=== PATIENT | male | born 1945 | race Caucasian/White ===

== ENCOUNTER 2024-08-12 13:13 | Outpatient (CLI) | payer OTHER, SELFPAY ==
--- OUTSIDE RECORDS SUMMARY | 2024-06-28 10:00 | XMS_ITS ---
CT MEDICAL NUTRITION INDIV IN [facility] Encounter Summary Created on: August 12, 2024 DIANNE COLES : 1945 Sex: Male Author Name [facility] [place] [facility] [place] [facility] [place] Address [address] [place] [address] Care Team Providers Care Wreath Machine Operator Name Role Phone MARIO BROWN Primary Care Provider UnavailROBERT Pepe Primary Care Provider Unavailabl e Insurance Providers: All historical and current Section Date Range: From patient's date of to the date document was created. This section includes the names of all active insurance providers for the patient. Insurance Provider Type of Coverage Plan Name Start of Policy Coverage End of Policy Coverage Group Number Member ID Insurance Provider's Telephone Number Policy Natarajan's Name Patient's Relationship to Policy Natarajan [facility]) [facility]IC[facility] ([facility]) Feb 14, 2024 [id number] ENRIKE COLES PATIENT [employer] [facility] (WNR) MEDICARE ADVANTAGE [facility] ([facility]) Feb 13, 2015 [id number] ENRIKE COLES PATIENT Selected Encounter This section includes the information on record at CT for the Encounter. Date/Time Encounter Type Encounter Description Reason Provider Source June 28, 2024 02:00 PM MEDICAL NUTRITION INDIV IN TELEPHONE/JOSEILLA GISELA ICD-10-CM R63.6 SWETA Bassett [place] Encounter Template Text not used by CT Assessments - Encounter Diagnoses This section includes the primary and secondary diagnoses documented for the Encounter. Date/Time Primary/Secondary Diagnosis Diagnosis Name Provider Source June 28, 2024 02:00 PM PRIMARY Underweight KRISTINAMAHENDRAA [facility] Plan of Treatment: Future Appointments (+ 6 months) and Future Tests (+/- 45 days) The Plan of Treatment section includes future care activities for the patient from all CT treatmentfacilities. This section includes future appointments and future orders which are active, pending or scheduled. Future Appointments This section includes appointments that were scheduled to occur 6 months from the date of the Encounter, up to a maximum of 20 appointments. The data comes from all CT treatment facilities. Appointment Date/Time Appointment Type Appointme nt Facility Name July 03, 2024 01:00 PM AMBULATORY - MED[facility]INE [facility] Sep 20, 2024 11:00 AM AMBULATORY - NONE [facility] Oct 30, 2024 02:30 PM AMBULATORY - MEDICINE [facility] Nov 22, 2024 01:30 PM AMBULATORY - NONE [place] Social History: Smoking Status (Most current) and Tobacco Use (All prior to encounter date) This section includes the most current, and the historical, smoking and tobacco- related health factors from the CT facility where the Encounter took place. Current Smoking Status This section includes the most current smoking, or tobacco-related health factor, from the CT facility where the Encounter took place. Date/Time Current Smoking Status Comment Natividad braga Apr 26, 2024 01:30 PM VA-TOBACCO USE FORMER CIGARETTES [facility] Tobacco Use History This section includes a history of the smoking, or tobacco-related health factors, that were collected on or before the date of the Encounter. The data comes from the CT facility where the Encounter took place. Date/Time Smoking Status/Tobacco Use Comment F acodalys Apr 26, 2024 01:30 PM VA-TOBACCO USE FORMER CIGARETTES [facility] Feb 24, 2023 02:30 PM VA-TOBACCO FORMER USER [facility] Feb 24, 2023 02:30 PM VA-TOBACCO QUIT 15 YRS OR MORE [facility] Dec 22, 2021 01:30 PM VA-TOBACCO FORMER USER [facility] Dec 22, 2021 01:30 PM VA-TOBACCO QUIT 15 YRS OR MORE [facility] May 26, 2021 09:00 AM VA-TOBACCO FORMER USER [facility] May 26, 2021 09:00 AM VA-TOBACCO QUIT 15 YRS OR MORE [facility] Oct 22, 2020 10:30 AM VA-TOBACCO FORMER USER [facility] Oct 22, 2020 10:30 AM VA-TOBACCO QUIT 15 YRS OR MORE [facility] May 20, 2020 01:30 PM VA-TOBACCO FORMER USER [facility] May 20, 2020 01:30 PM VA-TOBACCO QUIT 15 YRS OR MORE [facility] Advance Directives: All historical and current Section Date Range: From patient's date of to the date document was created. This section includes ALL of a patient's completed or amended CT Advance and Rescinded Directives. The entries below indicate that a directive exists for the patient, but an actual copy is not included with this document. The data comes from all CT facilities. Date Advance Directives Provider Source Nov 21, 2019 ADVANCE DIRECTIVE DISCUSSION HUMAN,AYANNA MAK [facility] Encounter Notes: All associated encounter notes This section contains the clinical notes associated to the Encounter. Date/Time Encounter Note(s) Provider Source June 28, 2024 02:00 PM NUTRITION TELEPHON E ENCOUNTER NOTE: LOCAL TITLE: NUTRITION TELEPHONE NOTE STANDARD TITLE: NUTRITION TELEPHONE ENCOUNTER NOTE DATE OF NOTE: JUNE 28, 2024@14:00 ENTRY DATE: JUNE 28, 2024@14:00:56 AUTHOR: SWETA ACEVEDO COSIGNER: URGENCY: STATUS: COMPLETED FOLLOW-UP F2F/VVC/PHONE VISIT FOR PATIENT NUTRITION PRIORITY: NUTRITION ASSESSMENT Assessment of patient selected goal(s) set at previous visit: 1. Ensure in between meals bid. Goal not met. 2. Add high calorie foods to diet. Goal met. Assessment of clinical outcomes set at previous visit: Patient reports when he drinks Ensure it bloats him and curbs his appetite and he doesn't want to eat. Up at 7:15 eats orange, oats, sits in chair then catches up on his sleep. Gets up around 11:30 but he isn't hungry. 2-3 PM eats, drinks an Ensure 4-4:30 then he is too bloated to eat a meal and only eats a bite or 2 to take his medication. RDN discussed Ensure Clear with patient and he is interested in trying the apple flavor. RDN told him he can donate or give away the Ensure he has on hand. His weight is trending up and he has gained 10 lbs. over the past 7 months but BMI: 20 is low for age. FOOD/NUTRITION-RELATED HX Breakfast: Steel Cut Oatmeal w/milk, cinnamon, honey, walnuts, flaxseed powder, orange or [place] muffin w/honey, peanut butter w/oatmeal. Lunch: Egg omelet w/onions, spinach, cheese, slice of bread. Dinner: Grilled [place], sweet potato w/butter, cinnamon, honey or Restaurant called [employer]: Dietz Salad or white mesa soup w/mendoza or chicken sandwich Snacks: Beverages: Water Weight: 136.69 lb. [62.00 kg] (04/26/2024 14:13) BMI: 20.2 WEIGHT HX: 04/26/24 @ 1413 WEIGHT: 136 Lbs. 01/24/24 @ 1450 WEIGHT: 134 12/28/23 @ 1233 WEIGHT: 132 11/24/23 @ 1104 WEIGHT: 126 BIOCHEMICAL DATA: Reviewed NUTRITION FOCUSED PHYSICAL FINDINGS: N/A tele visits NUTRITION PRESCRIPTION Golden Diet Calories: 1800 30 kcal/kg actual wt. Protein: 60-72 grams 1.0-1.2 g/kg actual wt. ASSESSMENT, MONITORING, AND EVALUATION TOOLS: NUTRITION DIAGNOSIS: Nutritional related knowledge deficit, related to lack of prior nutrition education (knowledge etiology), as evidenced by patient over restricting foods, unintended weight loss. IMPROVING NUTRITION INTERVENTION FOOD AND/OR NUTRITION DELIVERY -Meals and Snacks: 3 meals/day, snacks if needed. -Nutrition Supplement Therapy: Ensure Clear supplements bid to help meet daily needs. Each supplement will provide 240 kcal and 8 g protein. NUTRITION COUNSELING Theoretical Basis/Approach: transtheoretical model stages of change approach Strategies: motivational interviewing, goal setting, self-monitoring Identify Nutrition Intervention Goal(s) Patient selected action plan/goal(s): 1. Ensure Clear in between meals bid. 2. Add high calorie foods to diet. NUTRITION MONITORING AND EVALUATION Clinical Indicators to Monitor: 1. Weight > 136 Lbs. FOLLOW-UP: 3-4 Months /maryellen/ SWETA ACEVEDO RDN Signed: 06/28/2024 14:31 SWETA ACEVEDO [facility]
--- OUTSIDE RECORDS SUMMARY | 2024-07-03 09:00 | XMS_ITS | Encounter Summary ---
Author Name [facility] [place] [place] Organization [facility] [place] Address [address] [place] [address] Care Team Providers Care Certified Driver Examiner Name Role Phone MARIO BROWN Primary Care Provider Unavailabl e ROBERT BHATT Primary Care Provider Unavailabl e Insurance Providers: [...] Natarajan's Name Patient's Relationship to Policy [facility]atar[facility] MEDICARE ADVANTAGE [facility] ([facility]) Feb 14, 2024 [id number] ENRIKE COLES PATIENT [employer] [facility] (WNR) MEDICARE ADVANTAGE [facility] ([facility]) Feb 13, 2015 [id number] ENRIKE COLES PATIENT Selected Encounter This section includes the information on record at [place] for the Encounter. Date/Time Encounter Type Encounter Description Reason Provider Source July 03, 2024 01:00 PM OFFICE O/P EST LOW 20 MIN CARDIOLOGY ICD-10-CM I25.10 Athscl heart disease of [place] coronary artery w/o ang pctTO [place] [facility] Encounter Template Text not used by [place] Assessments - Encounter Diagnoses This section includes the primary and secondary diagnoses documented for the Encounter. Date/Time Primary/Secondary Diagnosis Diagnosis Name Provider Source July 03, 2024 02:07 PM PRIMARY Athscl heart disease of [place] coronary artery w/o TO [place] Plan of Treatment: Future Appointments (+ 6 months) and Future Tests (+/- 45 days) The Plan of Treatment section includes future care activities for the patient from all [place] treatmentfacilities. This section includes future appointments and future orders which are active, pending or scheduled. Future Appointments This section includes appointments that were scheduled to occur 6 months from the date of the Encounter, up to a maximum of 20 appointments. The data comes from all [place] treatment facilities. Appointment Date/Time Appointment Type Appointme nt Facility Name Sep 20, 2024 11:00 AM AMBULATORY - NONE [facility] Oct 30, 2024 02:30 PM [facility]ORY - MEDICINE [place] Nov 22, 2024 01:30 PM [facility]ATORY - NONE [place] Jan 02, 2025 01:30 PM [facility]ORY - MEDICINE [place] Vital Signs: All taken on the encounter date This section contains inpatient and outpatient Vital Signs collected on the date of the Encounter. Date/Time Temperature Pulse Blood Pressure Respiratory Rate SP02 Pain Height Weight Body Mass Index Source July 03, 2024 01:04 PM 60 106/62 90 132.94 20 [place] Social History: Smoking Status (Most current) and Tobacco Use (All prior to encounter date) This section includes the most current, and the historical, smoking and tobacco- related health factors from the [place] facility where the Encounter took place. Current Smoking Status This section includes the most current smoking, or tobacco-related health factor, from the [place] facility where the Encounter took place. Date/Time Current Smoking Status Comment Facil ity Apr 27, 2019 09:25 AM TOBACCO [facility] D[facility] Tobacco Use History This section includes a history of the smoking, or tobacco-related health factors, that were collected on or before the date of the Encounter. The data comes from the [place] facility where the Encounter took place. Date/Time Smoking Status/Tobacco Use Comment F acility Apr 26, 2019 06:33 PM TOBACCO USE INPT SCRN LAST 30 DA YS [facility] Advance Directives: All historical and current Section Date Range: From patient's date of to the date document was created. This section includes ALL of a patient's completed or amended [place] Advance and Rescinded Directives. The entries below indicate that a directive exists for the patient, but an actual copy is not included with this document. The data comes from all [place] facilities. Date Advance Directives Provider Source Nov 21, 2019 ADVANCE DIRECTIVE DISCUSSION HUMAN,AYANNA MAK [facility] Encounter Notes: All associated encounter notes This section contains the clinical notes associated to the Encounter. Date/Time Encounter Note(s) Provider Source July 03, 2024 09:54 AM CARDIOLOGY ATTENDI LEV NOTE: LOCAL TITLE: CARDIOLOGY ATTENDING NOTE STANDARD TITLE: CARDIOLOGY ATTENDING NOTE DATE OF NOTE: JULY 03, 2024@09:54 ENTRY DATE: JULY 03, 2024@09:55:03 AUTHOR: TO GUILLAUME EXP COSIGNER: URGENCY: STATUS: COMPLETED pt with known cad, sp azul to mid lad 04/2019, pvcs. last here in dec. got new muga (following in light of cad, dyspnea, freq ectopy) with normal and unchanged ef TODAY longstanding santa not changed. still pretty active, can carry groceries, etc. no angina. no orthop or pnd. no edema. past hx cad- --stress 04/2019, walked 2'40 , reached targetfreq ectopy, + ekg changes, large, mostly fixed defect on images --cath 04/2019- nl lm, long 99% mid lad--> azul, 30% mid cx, 40% mid rca --stress 04/2020- walked 2.5 min, freq ectope incl bigem, sts nondiagnostic, images ok --cath 05/2020- nonobx cad incl lad stent with mild in stent restenosis not hemodynamically signif, 40-50 --muga 01/04 ef 59 --muga 02/2024 ef 57 pvcs- 8% on monitor in 2020 also copd meds atorvastatin 80 metoprolol 12.5 (half a 25) twice a day (in past tried to incr to 25 but felt bad and went back to 12.5) asa 81 plavix -stopped late 2022 pe today, thin man, looks comfortable at rest wt 133 (stable) 106/62-60 no jvd chest clear to a and p reg rhythm, no prematures on exam, no m or g abd soft no edema imp: -cad sp stent lad 04/2019- no signif obx on cath 05/2020--> med management. normal ef on 2021 muga. no angina at all. on statin, bb, asa -vent ectopy, <8%, mostly isolated pvcs but palps especially with bigem and trigem. nl ef by muga in 2021 and again early 2024 -dyspnea- no ischemia and nl ef, wonder about his copd, declines inhalers plan meds as above, reviewed and discussed with mr coles rtc 6 mo /es/ TO GUILLAUME M.D. Signed: 07/03/2024 14:07 TO GUILLAUME [facility]
--- NOTE | 2024-08-12 | CA_ITS ---
APPROVED REPORT EXAM: Comprehensive 2D, Doppler, and color-flow Echocardiogram Medical Assistant Prn: Patricia Yeager CRT Ht: 5 ft 9 in Wt: 129lbs BSA: 1.71 BP: 124/78 mmHg Indications: CAD, Hyperlipidemia, Hypertension, Stents 2020 Difficult exam due to lung interference 2D Dimensions LA Volume 19.80 mL LA Volume Index 11.51 mL/m2 (M/F) 16-34 M-Mode Dimensions RVDd 3.09 cm (0.9-2.6) LA Diam 2.88 cm (1.9-4.0) LVDd 4.19 cm (3.5-5.7) LVDs 2.62 cm (3.5-5.7) IVSd 0.97 cm (0.6-1.1) PWd 1.11 cm (0.6-1.1) EF (Teich) 67.90% FS 37.50% EDV (Teich) 78.10 mL TAPSE 2.59 (<1.7) ESV (Teich) 25.10 mL LV Diastology E Decel Time 183 (160-240 msec) E/A Ratio 1.27 MED A' 12.20 cm/s LAT A' 8.40 cm/s Aortic Valve LUKE Index 1.68 cm2/m2 AoV Peak Leander. 206.0 (50-130 cm/s) AI PHT 483.00 ms AO Peak GR. 17.00 mmHg AO Mean GR. 9.20 (<5 mmHg) AO VTI 45.3 (18-25 cm) LUKE (VTI) 2.95 (2.5-4.5 cm2) Mitral Valve MV A Velocity 52.0 (40-130 cm/s) E/A Ratio 1.27 Pulmonary Valve PV Peak Velocity 199.0 (50-150 cm/s) Tricuspid Valve TR P. Velocity 387.00 cm/s RAP Estimate 10.00 mmHg RVSP 69.90 mmHg Left Ventricle The left ventricle is normal size. The left ventricular systolic function is normal. The left ventricular ejection fraction is within the normal range. There is normal left ventricular wall thickness. There is normal LV segmental wall motion. The left ventricular diastolic function is normal. LVEF is 55%. Right Ventricle Right ventricle is mildly dilated. The right ventricular systolic function is normal. Atria The left atrium size is normal. The right atrium size is normal. There is no Doppler evidence of interatrial shunt. Aortic Valve The aortic valve is mildly thickened. Aortic sclerosis, but no evidence of hemodynamically significant aortic stenosis. Mild aortic regurgitation. Mitral Valve The mitral valve leaflets are mildly thickened. No evidence of mitral valve stenosis. Trace mitral regurgitation. Tricuspid Valve Tricuspid valve is grossly normal in structure and function. Moderate tricuspid regurgitation. RVSP is 35-40 mmHg. Pulmonic Valve The pulmonary valve is normal in structure. Trace pulmonic regurgitation. Great Vessels The aortic root is normal in size. IVC is normal in size and collapses >50% with inspiration. Pericardium There is no pericardial effusion. Other Information Study Quality: Fair Conclusion Normal biventricular systolic function. Mild RV dilation. Mild AI. Moderate TR. RVSP 35-40 mmHg. Electronically signed by : Greer Simons MD 08/15/2024 00:02:10
--- OUTSIDE RECORDS SUMMARY | 2024-08-12 08:16 | XMS_ITS | Continuity of Care Document ---
Author Name [facility] Organization [facility] Care Team Providers Care Towel Weaver Name Role Phone [facility] Unavailable Unavailable Problems Combined list of problems from Department of Defense and Veterans Affairs facilities. It does not include entries that were removed or entered in error. Problem Status Onset Date Problem Type Date of Resolution Comments Source Bilateral cataracts Active Condition [facility] Bilateral hearing loss Active Condition Jan 30, 2017 Entered By: CRYSTAL JOSE Comment: has HAs [facility] Bilateral hearing loss Active Condition [facility] - Coronary Artery Disease ([facility] [id number]) Active Condition [facility] Dermatitis Active Condition [facility] Exposure to potentially hazardous substance Active Condition Jan 24, 2024 Entered By: RBOERT BHATT Comment: agent orange and [place] pits in [place] [facility]: surgery Active Condition Sep 17, 2013 Entered By: TAINA SIERRA Comment: appendectomy , 5 cysts [facility] HTN - Hypertension ([facility] [id number]) [facility] Knee pain Active Condition [facility] Low Back Pain ([facility] [id number]) [facility] Palpitations ([facility] [id number]) [facility] Shoulder pain Active Condition [place] Subcutaneous nodule Active Condition [facility] Tinnitus Active Condition 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, inc shoulder Active Diagnosis [facility] Diagnosis: ICD-10-CM D48.5 Neoplasm of uncertain behavior of skin Active Diagnosis [facility] Diagnosis: ICD-10-CM Z96.1 Presence of intraocular lens Active Diagnosis [facility] Diagnosis: ICD-10-CM R23.8 Other skin changes Active Diagnosis [facility] Diagnosis: ICD-10-CM Z13.5 Encounter for screening for eye and ear disorders Active Diagnosis [facility] Diagnosis: ICD-10-CM D17.1 Benign lipomatous neoplasm of skin, subcu of trunk Active Diagnosis [facility] Diagnosis: ICD-10-CM R00.2 Palpitations Active Diagnosis [facility] Medications Combined list of outpatient medications from Department of Defense and Veterans Affairs facilities.Medications provided include 1) outpatient medications from the last 15 months, and 2) patient-reported medications. Medication Details Route Status Patient Instructions Prescription Expires Prescription Number Last Dispense Date Ordering Provider Order Date Order Qty Source ASCORBIC ACID 500MG TAB TAKE 7 TABLETS BY MOUTH DAILY ORAL ACTIVE JOSE G BROWN 2017 [facility] ASPIRIN 81MG TAB,EC TAKE ONE TABLET BY MOUTH ONCE DAILY FOR BLOOD/HE ART ORAL ACTIVE 09/10/2024 [id number] 5 Joan GUILLAUME 2024 120 [facility] ASPIRIN 81MG TAB,EC TAKE ONE TABLET BY MOUTH ONCE DAILY FOR BLOOD/HE ART ORAL DISCONT INUED 03/27/2024 [id number] 4 Joan GUILLAUME 2023 120 [place] [facility] ASPIRIN 81MG TAB,EC TAKE ONE TABLET BY MOUTH ONCE DAILY FOR BLOOD/HE ART ORAL DISCONT INUED 12/28/2023 [id number] DAVIAN BHATT A 2023 120 [facility] ASPIRIN 81MG TAB,EC TAKE ONE TABLET BY MOUTH ONCE DAILY FOR BLOOD/HE ART ORAL 09/13/2023 [id number] 4 Joan GUILLAUME 2023 120 [place] [facility] ATORVASTATI N CA 80MG TAB TAKE ONE TABLET BY MOUTH AT BEDTIME FOR CHOLESTE ROL ORAL ACTIVE 06/13/2025 [id number] 5 Joan GUILLAUME 2024 90 [place] [facility] ATORVASTATI N CA 80MG TAB TAKE ONE TABLET BY MOUTH AT BEDTIME FOR CHOLESTE ROL ORAL DISCONT INUED 12/28/2024 [id number] 5 Joan GUILLAUME 2023 90 [place] [facility] ATORVASTATI N CA 80MG TAB TAKE ONE TABLET BY MOUTH AT BEDTIME FOR CHOLESTE ROL ORAL DISCONT INUED 09/29/2024 [id number] 4 DAVIAN BHATT A 2023 90 [facility] ATORVASTATI N CA 80MG TAB TAKE ONE TABLET BY MOUTH AT BEDTIME FOR CHOLESTE ROL ORAL DISCONT INUED 06/15/2024 [id number] 4 Joan GUILLAUME 2023 90 [place] [facility] CHOLECALCIF NAHOMI 25MCG (1,000UNIT) TAB TAKE ONE TABLET BY MOUTH DAILY ORAL ACTIVE PAVAN JOSE 2016 [facility] COENZYME Q10 CAP/TAB TAKE 1 TAB/CAP BY MOUTH DAILY ORAL ACTIVE PAVAN JOSE 2016 [facility] ENSURE CLEAR LIQUID APPLE DRINK/US E 1 CAN BY MOUTH TWICE A DAY FOR NUTRITIO NAL SUPPORT ORAL ACTIVE 06/29/2025 [id number] 5 DAVIAN BHATT A 2024 72 [facility] ENSURE PLUS LIQUID VANILLA DRINK/US E 1 CAN BY MOUTH TWICE A DAY ORAL DISCONT INUED BY LESLI R 04/13/2025 [id number] 5 DAVIAN BHATT A 2024 72 [facility] ENSURE PLUS LIQUID VANILLA DRINK/US E 1 CAN BY MOUTH TWICE A DAY ORAL DISCONT INUED 10/10/2024 [id number] 5 DAVIAN BHATT A 2023 72 [place] [facility] KETOCONAZOL E 2% SHAMPOO APPLY SHAMPOO TO AFFECTED AREA TOPICALL Y DIRECTED (LATHER, LEAVE ON 5 MINUTES, THEN RINSE) USE 3 TIMES PER WEEK, LEAVE ON 3 TO 5 MINUTES, THEN RINSE TOPICA L ACTIVE 09/29/2024 [id number] 5 DAVIAN BHATT A 2023 120 [facility] METOPROLOL TARTRATE 25MG TAB TAKE ONE-HALF TABLET BY MOUTH TWICE A DAY FOR BLOOD PRESSURE /HEART ORAL ACTIVE 06/13/2025 [id number] 5 Joan GUILLAUME 2024 90 [place] [facility] METOPROLOL TARTRATE 25MG TAB TAKE ONE-HALF TABLET BY MOUTH TWICE A DAY FOR BLOOD PRESSURE /HEART ORAL DISCONT INUED 12/28/2024 [id number] 5 Joan GUILLAUME B 2023 90 [place] [facility] METOPROLOL TARTRATE 25MG TAB TAKE ONE-HALF TABLET BY MOUTH TWICE A DAY FOR BLOOD PRESSURE /HEART ORAL DISCONT INUED 09/29/2024 [id number] 4 DAVIAN BHATT A 2023 90 [facility] METOPROLOL TARTRATE 25MG TAB TAKE ONE-HALF TABLET BY MOUTH TWICE A DAY FOR BLOOD PRESSURE /HEART ORAL DISCONT INUED 06/15/2024 [id number] 4 Joan GUILLAUME B 2023 90 [place] [facility] MULTIVITS W/MINERALS TAB/CAP (NO VIT K) TAKE ONE TABLET BY MOUTH DAILY ORAL ACTIVE PAVAN JOSE 2016 [facility] Immunizations Combined list of available immunizations from the Department of Defense and [facility] Affairs facilities. Immunization Series Date Given Administered By Site Reaction Lot Number CVX Code Drug Trust Officer Status Comments Source TDAP 2024 LYNDSEY HEWITT LEFT DELTO ID [id number] complet ed [facility] [place] [facility] [place] INFLUENZA, INJECTABLE, QUADRIVALENT, PRESERVATIVE FREE 2019 150 complet ed [facility] PNEUMOCOCCAL POLYSACCHARID E PPV23 2019 33 complet ed [facility] ZOSTER RECOMBINANT 2 2018 187 complet ed [facility] ZOSTER RECOMBINANT 1 2018 187 complet ed [place] PNEUMOCOCCAL POLYSACCHARID E PPV23 2017 33 complet ed [facility] PNEUMOCOCCAL CONJUGATE PCV 13 2017 133 complet ed [place] [facility] PNEUMOCOCCAL CONJUGATE PCV 13 2015 133 complet ed [facility] TDAP 2014 115 complet ed [place] [facility] TD(ADULT) UNSPECIFIED FORMULATION 2009 139 complet ed [place] [facility] TD (ADULT), 2 LF TETANUS TOXOID, PRESERVATIVE FREE, ADSORBED 1 1996 09 complet ed HISTORICA L INFORMATI ON - FROM OTHER REGISTRY, [facility] Results Combined list of recent chemistry, hematology and other laboratory results from Department of Defense and Veterans Affairs, ranging from 15 months to all on record, depending upon the facility. Order Name Results Value Reference Range Date Interpretation Specimen Comments Source HEMOGLOBI N A1c HEMOGLOBIN A1C/HEMOGLO BIN.TOTAL IN BLOOD BY ELECTROPHOR ESIS 5.5 - 5.6 04/26 Specimen Type: BLOOD Comment: Normal: <=5.6% Prediabetes : 5.7% - 6.4% Diabetes: >6.4% Values obtained from A1C measurement s can vary. For typical A1c assays, a reported value of 7.0% could be between 6.82% and 7.18% if measured by a reference method. A reported value of 9.0% could be between 8.82% and 9.18%. Clinical decisions should be based on longitudina l patterns of results. Ordering Provider: MARCELLE BHATT Report Released Date/Time: Apr 26, 2024 01:42 PM Reporting Lab: [place] [phone] Performing Lab: [address] [address] [facility] THYROID PROFILE THYROXINE (T4) FREE [MASS/VOLUM E] IN SERUM OR PLASMA 1.18 ng/dL 0.61 - 1.12 04/26 H Specimen Type: PLASMA No comment entered. Ordering Provider: MARCELLE BHATT Report Released Date/Time: Apr 26, 2024 01:42 PM Reporting Lab: [place] [phone] Performing Lab: [place] [phone] [facility] I THYROID PROFILE THYROTROPIN [UNITS/VOLU ME] IN SERUM OR PLASMA 2.64 u[IU]/ mL 0.45 - 4.54 04/26 Specimen Type: PLASMA No comment entered. Ordering Provider: MARCELLE BHATT Report Released Date/Time: Apr 26, 2024 01:42 PM Reporting Lab: [address] [address] Performing Lab: [place] [phone] [place] LEUKOCYTES [#/VOLUME] CORRECTED FOR NUCLEATED ERYTHROCYTE S IN BLOOD BY AUTOMATED COUNT 4.55 10*3/u L 4.70 - 11.00 04/26 L Specimen Type: BLOOD No comment entered. Ordering Provider: MARCELLE BHATT Report Released Date/Time: Apr 26, 2024 01:42 PM Reporting Lab: [place] [address] [address]forming Lab: [address] CBC ERYTHROCYTE S [#/VOLUME] IN BLOOD BY AUTOMATED COUNT 4.76 10*6/u L 4.5 - 6 04/26 Specimen Type: BLOOD No comment entered. Ordering Provider: MARCELLE BHATT Report Released Date/Time: Apr 26, 2024 01:42 PM Reporting Lab: [place] [address] Performing Lab: [address] I CBC HEMOGLOBIN [MASS/VOLUM E] IN BLOOD 14.7 g/dL 13.5 - 17.5 04/26 Specimen Type: BLOOD No comment entered. Ordering Provider: MARCELLE BHATT Report Released Date/Time: Apr 26, 2024 01:42 PM Reporting Lab: [place] [address] Performing Lab[address] CBC HEMATOCRIT [VOLUME FRACTION] OF BLOOD BY AUTOMATED COUNT 45.7 42 - 52 04/26 Specimen Type: BLOOD No comment entered. Ordering Provider: MARCELLE BHATT Report Released Date/Time: Apr 26, 2024 01:42 PM Reporting Lab: [place] [address] Performing Lab: [place] [address] [facility] CBC MCV [ENTITIC VOLUME] BY AUTOMATED COUNT 96.0 fL 82 - 98 04/26 Specimen Type: BLOOD No comment entered. Ordering Provider: MARCELLE BHATT Report Released Date/Time: Apr 26, 2024 01:42 PM Reporting Lab: [address] [address] Performing Lab: [address] [address] [facility] CBC MCH [ENTITIC MASS] BY AUTOMATED COUNT 30.9 pg 27 - 31 04/26 Specimen Type: BLOOD No comment entered. Ordering Provider: MARCELLE BHATT Report Released Date/Time: Apr 26, 2024 01:42 PM Reporting Lab: [address] [address] Performing Lab: [place] [phone] [place] [address] I CBC MCHC [MASS/VOLUM E] BY AUTOMATED COUNT 32.2 g/dL 30 - 37 04/26 Specimen Type: BLOOD No comment entered. Ordering Provider: MARCELLE BHATT Report Released Date/Time: Apr 26, 2024 01:42 PM Reporting Lab: [address] [address] Performing Lab: [address] [address] [facility] PLATELETS [#/VOLUME] IN BLOOD BY AUTOMATED COUNT 235 10*3/u L 140 - 400 04/26 Specimen Type: BLOOD No comment entered. Ordering Provider: MARCELLE BHATT Report Released Date/Time: Apr 26, 2024 01:42 PM Reporting Lab: [address] [address] Performing Lab: [address] [address] [facility] CBC PLATELET MEAN VOLUME [ENTITIC VOLUME] IN BLOOD BY AUTOMATED COUNT 10.6 fL 8 - 13 04/26 Specimen Type: BLOOD No comment entered. Ordering Provider: MARCELLE BHATT Report Released Date/Time: Apr 26, 2024 01:42 PM Reporting Lab: [address] [address] Performing Lab: [address] [address] [facility] CBC ERYTHROCYTE DISTRIBUTIO N WIDTH [RATIO] BY AUTOMATED COUNT 13.2 11 - 15 04/26 Specimen Type: BLOOD No comment entered. Ordering Provider: MARCELLE BHATT Report Released Date/Time: Apr 26, 2024 01:42 PM Reporting Lab: [address] [address] Performing Lab: [place] [phone] [facility] CBC NUCLEATED ERYTHROCYTE S [#/VOLUME] IN BLOOD BY AUTOMATED COUNT 0.0 0 - 0.1 04/26 Specimen Type: BLOOD No comment entered. Ordering Provider: MARCELLE BHATT Report Released Date/Time: Apr 26, 2024 01:42 PM Reporting Lab: [address] [address] Performing Lab: [address] [address] [facility] LIPID PANEL CHOLESTEROL [MASS/VOLUM E] IN SERUM OR PLASMA 156 mg/dL 0 - 200 04/26 Specimen Type: PLASMA Comment: Standardize d eGFR Interpretat ion Estimated Glomerular Filtration Rate (eGFR) has been calculated using the 2020 Chronic Kidney Disease-Epi demiology (CKD-Epi) Collaborati on creatinine equation. Units of measurement are mL/min/1.73 m2. Results are only valid for adults whose serum creatinine is in a steady state. eGFR calculation s are not valid for patients with acute kidney injury or for patients undergoing dialysis. Creatinine- based methods of kidney function assays may vary according to a patient's muscle mass Chronic Kidney Disease (CKD) is classified based on cause, eGFR, and urine albumin to creatinine ratio. eGFR CKD stage Interpretat ion >=90 G1 Normal 60-89 G2 Mild decrease 45-59 G3A Mild to moderate decrease 30-44 G3B Moderate to severe decrease 15-29 G4 Severe decrease <15 G5 Kidney failure (mL/min/1.7 3 m2) Ordering Provider: MARCELLE BHATT Report Released Date/Time: Apr 26, 2024 01:42 PM Reporting Lab: [address] [address] Performing Lab: [address] [address] [facility] I LIPID PANEL TRIGLYCERID E [MASS/VOLUM E] IN SERUM OR PLASMA 125 mg/dL 0 - 150 04/26 Specimen Type: PLASMA Comment: Standardize d eGFR Interpretat ion Estimated Glomerular Filtration Rate (eGFR) has been calculated using the 2020 Chronic Kidney Disease-Epi demiology (CKD-Epi) Collaborati on creatinine equation. Units of measurement are mL/min/1.73 m2. Results are only valid for adults whose serum creatinine is in a steady state. eGFR calculation s are not valid for patients with acute kidney injury or for patients undergoing dialysis. Creatinine- based methods of kidney function assays may vary according to a patient's muscle mass Chronic Kidney Disease (CKD) is classified based on cause, eGFR, and urine albumin to creatinine ratio. eGFR CKD stage Interpretat ion >=90 G1 Normal 60-89 G2 Mild decrease 45-59 G3A Mild to moderate decrease 30-44 G3B Moderate to severe decrease 15-29 G4 Severe decrease <15 G5 Kidney failure (mL/min/1.7 3 m2) Ordering Provider: MARCELLE BHATT Report Released Date/Time: Apr 26, 2024 01:42 PM Reporting Lab: [address] [address] Performing Lab: [address] [address] [facility] LIPID PANEL CHOLESTEROL IN HDL [MASS/VOLUM E] IN SERUM OR PLASMA 56 mg/dL 23 - 92 04/26 Specimen Type: PLASMA Comment: Standardize d eGFR Interpretat ion Estimated Glomerular Filtration Rate (eGFR) has been calculated using the 2020 Chronic Kidney Disease-Epi demiology (CKD-Epi) Collaborati on creatinine equation. Units of measurement are mL/min/1.73 m2. Results are only valid for adults whose serum creatinine is in a steady state. eGFR calculation s are not valid for patients with acute kidney injury or for patients undergoing dialysis. Creatinine- based methods of kidney function assays may vary according to a patient's muscle mass Chronic Kidney Disease (CKD) is classified based on cause, eGFR, and urine albumin to creatinine ratio. eGFR CKD stage Interpretat ion >=90 G1 Normal 60-89 G2 Mild decrease 45-59 G3A Mild to moderate decrease 30-44 G3B Moderate to severe decrease 15-29 G4 Severe decrease <15 G5 Kidney failure (mL/min/1.7 3 m2) Ordering Provider: MARCELLE BHATT Report Released Date/Time: Apr 26, 2024 01:42 PM Reporting Lab: [address] [address] Performing Lab: [address] [address] [facility] LIPID PANEL CHOLESTEROL IN LDL [MASS/VOLUM E] IN SERUM OR PLASMA BY CALCULATION 75 mg/dL 75 - 193 04/26 Specimen Type: PLASMA Comment: Standardize d eGFR Interpretat ion Estimated Glomerular Filtration Rate (eGFR) has been calculated using the 2020 Chronic Kidney Disease-Epi demiology (CKD-Epi) Collaborati on creatinine equation. Units of measurement are mL/min/1.73 m2. Results are only valid for adults whose serum creatinine is in a steady state. eGFR calculation s are not valid for patients with acute kidney injury or for patients undergoing dialysis. Creatinine- based methods of kidney function assays may vary according to a patient's muscle mass Chronic Kidney Disease (CKD) is classified based on cause, eGFR, and urine albumin to creatinine ratio. eGFR CKD stage Interpretat ion >=90 G1 Normal 60-89 G2 Mild decrease 45-59 G3A Mild to moderate decrease 30-44 G3B Moderate to severe decrease 15-29 G4 Severe decrease <15 G5 Kidney failure (mL/min/1.7 3 m2) Ordering Provider: MARCELLE BHATT Report Released Date/Time: Apr 26, 2024 01:42 PM Reporting Lab: [address] [phone] Performing Lab: [address] [address] [facility] LIPID PANEL CHOLESTEROL IN LDL [MASS/VOLUM E] IN SERUM OR PLASMA canc 04/26 Specimen Type: PLASMA Comment: Standardize d eGFR Interpretat ion Estimated Glomerular Filtration Rate (eGFR) has been calculated using the 2020 Chronic Kidney Disease-Epi demiology (CKD-Epi) Collaborati on creatinine equation. Units of measurement are mL/min/1.73 m2. Results are only valid for adults whose serum creatinine is in a steady state. eGFR calculation s are not valid for patients with acute kidney injury or for patients undergoing dialysis. Creatinine- based methods of kidney function assays may vary according to a patient's muscle mass Chronic Kidney Disease (CKD) is classified based on cause, eGFR, and urine albumin to creatinine ratio. eGFR CKD stage Interpretat ion >=90 G1 Normal 60-89 G2 Mild decrease 45-59 G3A Mild to moderate decrease 30-44 G3B Moderate to severe decrease 15-29 G4 Severe decrease <15 G5 Kidney failure (mL/min/1.7 3 m2) Ordering Provider: MARCELLE BHATT Report Released Date/Time: Apr 26, 2024 01:42 PM Reporting Lab: [facility] [address] Performing Lab: [address] [address] [facility] COMPREHEN SIVE METABOLIC PANEL UREA NITROGEN [MASS/VOLUM E] IN SERUM OR PLASMA 22 mg/dL 7 - 25 04/26 Specimen Type: PLASMA Comment: Standardize d eGFR Interpretat ion Estimated Glomerular Filtration Rate (eGFR) has been calculated using the 2020 Chronic Kidney Disease-Epi demiology (CKD-Epi) Collaborati on creatinine equation. Units of measurement are mL/min/1.73 m2. Results are only valid for adults whose serum creatinine is in a steady state. eGFR calculation s are not valid for patients with acute kidney injury or for patients undergoing dialysis. Creatinine- based methods of kidney function assays may vary according to a patient's muscle mass Chronic Kidney Disease (CKD) is classified based on cause, eGFR, and urine albumin to creatinine ratio. eGFR CKD stage Interpretat ion >=90 G1 Normal 60-89 G2 Mild decrease 45-59 G3A Mild to moderate decrease 30-44 G3B Moderate to severe decrease 15-29 G4 Severe decrease <15 G5 Kidney failure (mL/min/1.7 3 m2) Ordering Provider: MARCELLE BHATT Report Released Date/Time: Apr 26, 2024 01:42 PM Reporting Lab: [facility] [address] Performing Lab: [address] [address] [facility] COMPREHEN SIVE METABOLIC PANEL GLUCOSE [MASS/VOLUM E] IN SERUM OR PLASMA 87 mg/dL 74 - 109 04/26 Specimen Type: PLASMA Comment: Standardize d eGFR Interpretat ion Estimated Glomerular Filtration Rate (eGFR) has been calculated using the 2020 Chronic Kidney Disease-Epi demiology (CKD-Epi) Collaborati on creatinine equation. Units of measurement are mL/min/1.73 m2. Results are only valid for adults whose serum creatinine is in a steady state. eGFR calculation s are not valid for patients with acute kidney injury or for patients undergoing dialysis. Creatinine- based methods of kidney function assays may vary according to a patient's muscle mass Chronic Kidney Disease (CKD) is classified based on cause, eGFR, and urine albumin to creatinine ratio. eGFR CKD stage Interpretat ion >=90 G1 Normal 60-89 G2 Mild decrease 45-59 G3A Mild to moderate decrease 30-44 G3B Moderate to severe decrease 15-29 G4 Severe decrease <15 G5 Kidney failure (mL/min/1.7 3 m2) Ordering Provider: MARCELLE BHATT Report Released Date/Time: Apr 26, 2024 01:42 PM Reporting Lab: [facility] [employer] [facility] [address] Performing Lab: [facility] [employer] [facility] [address] [facility] METABOLIC PANEL SODIUM [MOLES/VOLU ME] IN SERUM OR PLASMA 138 mmol/L 136 - 145 04/26 Specimen Type: PLASMA Comment: Standardize d eGFR Interpretat ion Estimated Glomerular Filtration Rate (eGFR) has been calculated using the 2020 Chronic Kidney Disease-Epi demiology (CKD-Epi) Collaborati on creatinine equation. Units of measurement are mL/min/1.73 m2. Results are only valid for adults whose serum creatinine is in a steady state. eGFR calculation s are not valid for patients with acute kidney injury or for patients undergoing dialysis. Creatinine- based methods of kidney function assays may vary according to a patient's muscle mass Chronic Kidney Disease (CKD) is classified based on cause, eGFR, and urine albumin to creatinine ratio. eGFR CKD stage Interpretat ion >=90 G1 Normal 60-89 G2 Mild decrease 45-59 G3A Mild to moderate decrease 30-44 G3B Moderate to severe decrease 15-29 G4 Severe decrease <15 G5 Kidney failure (mL/min/1.7 3 m2) Ordering Provider: MARCELLE BHATT Report Released Date/Time: Apr 26, 2024 01:42 PM Reporting Lab: [address] [address] Performing Lab: [address] [address] [facility] COMPREHEN SIVE METABOLIC PANEL POTASSIUM [MOLES/VOLU ME] IN SERUM OR PLASMA 4.5 mmol/L 3.5 - 5.1 04/26 Specimen Type: PLASMA Comment: Standardize d eGFR Interpretat ion Estimated Glomerular Filtration Rate (eGFR) has been calculated using the 2020 Chronic Kidney Disease-Epi demiology (CKD-Epi) Collaborati on creatinine equation. Units of measurement are mL/min/1.73 m2. Results are only valid for adults whose serum creatinine is in a steady state. eGFR calculation s are not valid for patients with acute kidney injury or for patients undergoing dialysis. Creatinine- based methods of kidney function assays may vary according to a patient's muscle mass Chronic Kidney Disease (CKD) is classified based on cause, eGFR, and urine albumin to creatinine ratio. eGFR CKD stage Interpretat ion >=90 G1 Normal 60-89 G2 Mild decrease 45-59 G3A Mild to moderate decrease 30-44 G3B Moderate to severe decrease 15-29 G4 Severe decrease <15 G5 Kidney failure (mL/min/1.7 3 m2) Ordering Provider: MARCELLE BHATT Report Released Date/Time: Apr 26, 2024 01:42 PM Reporting Lab: [address] [address] Performing Lab: [address] [address] [facility] COMPREHEN SIVE METABOLIC PANEL CHLORIDE [MOLES/VOLU ME] IN SERUM OR PLASMA 98 mmol/L 98 - 107 04/26 Specimen Type: PLASMA Comment: Standardize d eGFR Interpretat ion Estimated Glomerular Filtration Rate (eGFR) has been calculated using the 2020 Chronic Kidney Disease-Epi demiology (CKD-Epi) Collaborati on creatinine equation. Units of measurement are mL/min/1.73 m2. Results are only valid for adults whose serum creatinine is in a steady state. eGFR calculation s are not valid for patients with acute kidney injury or for patients undergoing dialysis. Creatinine- based methods of kidney function assays may vary according to a patient's muscle mass Chronic Kidney Disease (CKD) is classified based on cause, eGFR, and urine albumin to creatinine ratio. eGFR CKD stage Interpretat ion >=90 G1 Normal 60-89 G2 Mild decrease 45-59 G3A Mild to moderate decrease 30-44 G3B Moderate to severe decrease 15-29 G4 Severe decrease <15 G5 Kidney failure (mL/min/1.7 3 m2) Ordering Provider: MARCELLE BHATT Report Released Date/Time: Apr 26, 2024 01:42 PM Reporting Lab: [address] [facility] [address] Performing Lab: [address] [address] [facility]HEN SIVE METABOLIC PANEL BICARBONATE [MOLES/VOLU ME] IN SERUM OR PLASMA 36 mmol/L 04/26 H Specimen Type: PLASMA Comment: Standardize d eGFR Interpretat ion Estimated Glomerular Filtration Rate (eGFR) has been calculated using the 2020 Chronic Kidney Disease-Epi demiology (CKD-Epi) Collaborati on creatinine equation. Units of measurement are mL/min/1.73 m2. Results are only valid for adults whose serum creatinine is in a steady state. eGFR calculation s are not valid for patients with acute kidney injury or for patients undergoing dialysis. Creatinine- based methods of kidney function assays may vary according to a patient's muscle mass Chronic Kidney Disease (CKD) is classified based on cause, eGFR, and urine albumin to creatinine ratio. eGFR CKD stage Interpretat ion >=90 G1 Normal 60-89 G2 Mild decrease 45-59 G3A Mild to moderate decrease 30-44 G3B Moderate to severe decrease 15-29 G4 Severe decrease <15 G5 Kidney failure (mL/min/1.7 3 m2) Ordering Provider: MARCELLE BHATT Report Released Date/Time: Apr 26, 2024 01:42 PM Reporting Lab: [facility] [address] [facility] [place] [facility] [address] Performing Lab: [facility] [address] [address] [facility] COMPREHEN SIVE METABOLIC PANEL CALCIUM [MASS/VOLUM E] IN SERUM OR PLASMA 9.1 mg/dL 8.6 - 10.3 04/26 Specimen Type: PLASMA Comment: Standardize d eGFR Interpretat ion Estimated Glomerular Filtration Rate (eGFR) has been calculated using the 2020 Chronic Kidney Disease-Epi demiology (CKD-Epi) Collaborati on creatinine equation. Units of measurement are mL/min/1.73 m2. Results are only valid for adults whose serum creatinine is in a steady state. eGFR calculation s are not valid for patients with acute kidney injury or for patients undergoing dialysis. Creatinine- based methods of kidney function assays may vary according to a patient's muscle mass Chronic Kidney Disease (CKD) is classified based on cause, eGFR, and urine albumin to creatinine ratio. eGFR CKD stage Interpretat ion >=90 G1 Normal 60-89 G2 Mild decrease 45-59 G3A Mild to moderate decrease 30-44 G3B Moderate to severe decrease 15-29 G4 Severe decrease <15 G5 Kidney failure (mL/min/1.7 3 m2) Ordering Provider: MARCELLE BHATT Report Released Date/Time: Apr 26, 2024 01:42 PM Reporting Lab: [facility] [employer] [facility] [address] Performing Lab: [place] [address] [facility] [address] [facility] METABOLIC PANEL ALBUMIN [MASS/VOLUM E] IN SERUM OR PLASMA BY BROMOCRESOL GREEN (BCG) DYE BINDING METHOD 3.9 g/dL 3.5 - 7.5 04/26 Specimen Type: PLASMA Comment: Standardize d eGFR Interpretat ion Estimated Glomerular Filtration Rate (eGFR) has been calculated using the 2020 Chronic Kidney Disease-Epi demiology (CKD-Epi) Collaborati on creatinine equation. Units of measurement are mL/min/1.73 m2. Results are only valid for adults whose serum creatinine is in a steady state. eGFR calculation s are not valid for patients with acute kidney injury or for patients undergoing dialysis. Creatinine- based methods of kidney function assays may vary according to a patient's muscle mass Chronic Kidney Disease (CKD) is classified based on cause, eGFR, and urine albumin to creatinine ratio. eGFR CKD stage Interpretat ion >=90 G1 Normal 60-89 G2 Mild decrease 45-59 G3A Mild to moderate decrease 30-44 G3B Moderate to severe decrease 15-29 G4 Severe decrease <15 G5 Kidney failure (mL/min/1.7 3 m2) Ordering Provider: MARCELLE BHATT Report Released Date/Time: Apr 26, 2024 01:42 PM Reporting Lab[facility] [address] [facility] [address] Performing Lab: [address] [address] [facility] COMPREHEN SIVE METABOLIC PANEL BILIRUBIN.T OTAL [MASS/VOLUM E] IN SERUM OR PLASMA 0.7 mg/dL 0.3 - 1.0 04/26 Specimen Type: PLASMA Comment: Standardize d eGFR Interpretat ion Estimated Glomerular Filtration Rate (eGFR) has been calculated using the 2020 Chronic Kidney Disease-Epi demiology (CKD-Epi) Collaborati on creatinine equation. Units of measurement are mL/min/1.73 m2. Results are only valid for adults whose serum creatinine is in a steady state. eGFR calculation s are not valid for patients with acute kidney injury or for patients undergoing dialysis. Creatinine- based methods of kidney function assays may vary according to a patient's muscle mass Chronic Kidney Disease (CKD) is classified based on cause, eGFR, and urine albumin to creatinine ratio. eGFR CKD stage Interpretat ion >=90 G1 Normal 60-89 G2 Mild decrease 45-59 G3A Mild to moderate decrease 30-44 G3B Moderate to severe decrease 15-29 G4 Severe decrease <15 G5 Kidney failure (mL/min/1.7 3 m2) Ordering Provider: MARCELLE BHATT Report Released Date/Time: Apr 26, 2024 01:42 PM Reporting Lab: [address] [address] Performing Lab: [address] [address] [facility] COMPREHEN SIVE METABOLIC PANEL ASPARTATE AMINOTRANSF ERASE [ENZYMATIC ACTIVITY/VO LUME] IN SERUM OR PLASMA 34 U/L 13 - 39 04/26 Specimen Type: PLASMA Comment: Standardize d eGFR Interpretat ion Estimated Glomerular Filtration Rate (eGFR) has been calculated using the 2020 Chronic Kidney Disease-Epi demiology (CKD-Epi) Collaborati on creatinine equation. Units of measurement are mL/min/1.73 m2. Results are only valid for adults whose serum creatinine is in a steady state. eGFR calculation s are not valid for patients with acute kidney injury or for patients undergoing dialysis. Creatinine- based methods of kidney function assays may vary according to a patient's muscle mass Chronic Kidney Disease (CKD) is classified based on cause, eGFR, and urine albumin to creatinine ratio. eGFR CKD stage Interpretat ion >=90 G1 Normal 60-89 G2 Mild decrease 45-59 G3A Mild to moderate decrease 30-44 G3B Moderate to severe decrease 15-29 G4 Severe decrease <15 G5 Kidney failure (mL/min/1.7 3 m2) Ordering Provider: MARCELLE BHATT Report Released Date/Time: Apr 26, 2024 01:42 PM Reporting Lab: [address] [address] Performing Lab: [address] [address] [facility] COMPREHEN SIVE METABOLIC PANEL PROTEIN [MASS/VOLUM E] IN SERUM OR PLASMA 6.7 g/dL 6.0 - 8.3 04/26 Specimen Type: PLASMA Comment: Standardize d eGFR Interpretat ion Estimated Glomerular Filtration Rate (eGFR) has been calculated using the 2020 Chronic Kidney Disease-Epi demiology (CKD-Epi) Collaborati on creatinine equation. Units of measurement are mL/min/1.73 m2. Results are only valid for adults whose serum creatinine is in a steady state. eGFR calculation s are not valid for patients with acute kidney injury or for patients undergoing dialysis. Creatinine- based methods of kidney function assays may vary according to a patient's muscle mass Chronic Kidney Disease (CKD) is classified based on cause, eGFR, and urine albumin to creatinine ratio. eGFR CKD stage Interpretat ion >=90 G1 Normal 60-89 G2 Mild decrease 45-59 G3A Mild to moderate decrease 30-44 G3B Moderate to severe decrease 15-29 G4 Severe decrease <15 G5 Kidney failure (mL/min/1.7 3 m2) Ordering Provider: MARCELLE BHATT Report Released Date/Time: Apr 26, 2024 01:42 PM Reporting Lab: [facility] [facility] [address] Performing Lab: [address] [address] [facility] COMPREHEN SIVE METABOLIC PANEL ANION GAP IN SERUM OR PLASMA 9 mmol/L 10 - 20 04/26 L Specimen Type: PLASMA Comment: Standardize d eGFR Interpretat ion Estimated Glomerular Filtration Rate (eGFR) has been calculated using the 2020 Chronic Kidney Disease-Epi demiology (CKD-Epi) Collaborati on creatinine equation. Units of measurement are mL/min/1.73 m2. Results are only valid for adults whose serum creatinine is in a steady state. eGFR calculation s are not valid for patients with acute kidney injury or for patients undergoing dialysis. Creatinine- based methods of kidney function assays may vary according to a patient's muscle mass Chronic Kidney Disease (CKD) is classified based on cause, eGFR, and urine albumin to creatinine ratio. eGFR CKD stage Interpretat ion >=90 G1 Normal 60-89 G2 Mild decrease 45-59 G3A Mild to moderate decrease 30-44 G3B Moderate to severe decrease 15-29 G4 Severe decrease <15 G5 Kidney failure (mL/min/1.7 3 m2) Ordering Provider: MARCELLE BHATT Report Released Date/Time: Apr 26, 2024 01:42 PM Reporting Lab: [facility] [employer] [facility] [address] Performing Lab: [facility] [employer] [facility] [address] [facility]ile[employer] [facility] METABOLIC PANEL ALKALINE PHOSPHATASE [ENZYMATIC ACTIVITY/VO LUME] IN SERUM OR PLASMA 70 U/L 34 - 104 04/26 Specimen Type: PLASMA Comment: Standardize d eGFR Interpretat ion Estimated Glomerular Filtration Rate (eGFR) has been calculated using the 2020 Chronic Kidney Disease-Epi demiology (CKD-Epi) Collaborati on creatinine equation. Units of measurement are mL/min/1.73 m2. Results are only valid for adults whose serum creatinine is in a steady state. eGFR calculation s are not valid for patients with acute kidney injury or for patients undergoing dialysis. Creatinine- based methods of kidney function assays may vary according to a patient's muscle mass Chronic Kidney Disease (CKD) is classified based on cause, eGFR, and urine albumin to creatinine ratio. eGFR CKD stage Interpretat ion >=90 G1 Normal 60-89 G2 Mild decrease 45-59 G3A Mild to moderate decrease 30-44 G3B Moderate to severe decrease 15-29 G4 Severe decrease <15 G5 Kidney failure (mL/min/1.7 3 m2) Ordering Provider: MARCELLE BHATT Report Released Date/Time: Apr 26, 2024 01:42 PM Reporting Lab: [facility] [employer] [facility] [address] Performing Lab: [facility] [address] [facility] [address] [facility] COMPREHEN SIVE METABOLIC PANEL ALANINE AMINOTRANSF ERASE [ENZYMATIC ACTIVITY/VO LUME] IN SERUM OR PLASMA 32 U/L 7 - 52 04/26 Specimen Type: PLASMA Comment: Standardize d eGFR Interpretat ion Estimated Glomerular Filtration Rate (eGFR) has been calculated using the 2020 Chronic Kidney Disease-Epi demiology (CKD-Epi) Collaborati on creatinine equation. Units of measurement are mL/min/1.73 m2. Results are only valid for adults whose serum creatinine is in a steady state. eGFR calculation s are not valid for patients with acute kidney injury or for patients undergoing dialysis. Creatinine- based methods of kidney function assays may vary according to a patient's muscle mass Chronic Kidney Disease (CKD) is classified based on cause, eGFR, and urine albumin to creatinine ratio. eGFR CKD stage Interpretat ion >=90 G1 Normal 60-89 G2 Mild decrease 45-59 G3A Mild to moderate decrease 30-44 G3B Moderate to severe decrease 15-29 G4 Severe decrease <15 G5 Kidney failure (mL/min/1.7 3 m2) Ordering Provider: MARCELLE BHATT Report Released Date/Time: Apr 26, 2024 01:42 PM Reporting Lab: [address] [address] Performing Lab: [address] [address] [facility] COMPREHEN SIVE METABOLIC PANEL CREATININE [MASS/VOLUM E] IN SERUM OR PLASMA 0.9 mg/dL 0.6 - 1.3 04/26 Specimen Type: PLASMA Comment: Standardize d eGFR Interpretat ion Estimated Glomerular Filtration Rate (eGFR) has been calculated using the 2020 Chronic Kidney Disease-Epi demiology (CKD-Epi) Collaborati on creatinine equation. Units of measurement are mL/min/1.73 m2. Results are only valid for adults whose serum creatinine is in a steady state. eGFR calculation s are not valid for patients with acute kidney injury or for patients undergoing dialysis. Creatinine- based methods of kidney function assays may vary according to a patient's muscle mass Chronic Kidney Disease (CKD) is classified based on cause, eGFR, and urine albumin to creatinine ratio. eGFR CKD stage Interpretat ion >=90 G1 Normal 60-89 G2 Mild decrease 45-59 G3A Mild to moderate decrease 30-44 G3B Moderate to severe decrease 15-29 G4 Severe decrease <15 G5 Kidney failure (mL/min/1.7 3 m2) Ordering Provider: MARCELLE BHATT Report Released Date/Time: Apr 26, 2024 01:42 PM Reporting Lab: [address] [address] Performing Lab: [address] [address] [facility] COMPREHEN SIVE METABOLIC PANEL GLOMERULAR FILTRATION RATE/1.73 SQ M.PREDICTED [VOLUME RATE/AREA] IN SERUM, PLASMA OR BLOOD BY CREATININE- BASED FORMULA (CKD-EPI 2020) 87 90 04/26 L Specimen Type: PLASMA Comment: Standardize d eGFR Interpretat ion Estimated Glomerular Filtration Rate (eGFR) has been calculated using the 2020 Chronic Kidney Disease-Epi demiology (CKD-Epi) Collaborati on creatinine equation. Units of measurement are mL/min/1.73 m2. Results are only valid for adults whose serum creatinine is in a steady state. eGFR calculation s are not valid for patients with acute kidney injury or for patients undergoing dialysis. Creatinine- based methods of kidney function assays may vary according to a patient's muscle mass Chronic Kidney Disease (CKD) is classified based on cause, eGFR, and urine albumin to creatinine ratio. eGFR CKD stage Interpretat ion >=90 G1 Normal 60-89 G2 Mild decrease 45-59 G3A Mild to moderate decrease 30-44 G3B Moderate to severe decrease 15-29 G4 Severe decrease <15 G5 Kidney failure (mL/min/1.7 3 m2) Ordering Provider: MARCELLE BHATT Report Released Date/Time: Apr 26, 2024 01:42 PM Reporting Lab: [address] [address] Performing Lab: [address] [address] [facility] HEMOGLOBI N A1c HEMOGLOBIN A1C/HEMOGLO BIN.TOTAL IN BLOOD BY ELECTROPHOR ESIS 5.5 <5.6 - 5.6 09/28 Specimen Type: BLOOD Comment: Interpretat ion: Normal: < 5.7% (<39 mmol/mol) Prediabetes (high risk for diabetes): 5.7% to 6.4% (39 to 46 mmol/mol). Diabetes: > or equal to 6.5% (?48 mmol/mol) Note: [facility] lab uses Capillary Electrophor esis by [employer] (Capillarys 3 Lolita). The coefficient of variation in our lab was calculated to be between 0.7-2.3%, which is compliant with the NPSG recommendat ion of less than 3%. This analytical method can be impacted by hemoglobin variants. Values obtained from A1C measurement s can vary. For typical A1C assays, a reported value of 7.0% could be between 6.82% and 7.18% if measured by a reference method. A reported value of 9.0% could be between 8.82% and 9.18%. Clinical decisions should be based on longitudina l patterns of results. References: 1. Management Algorithm ? Lashell Delacruz, et al [employer] of Clinical Endocrinolo gy Consensus Statement: Comprehensi ve Type 2 Diabetes 2022 Update, Endocrine Practice, Volume 29, Issue 5,Page s [phone], [email or web address]://doi .org/10.101 6/j.[email or web address]. 2. [email or web address]://www. ngsp.org/[place] Pdata.asp. Ordering Provider: MARCELLE BHATT Report Released Date/Time: Sep 29, 2023 01:36 PM Reporting Lab: [place] [phone] Performing Lab: [place] [address] [facility] CBC LEUKOCYTES [#/VOLUME] CORRECTED FOR NUCLEATED ERYTHROCYTE S IN BLOOD BY AUTOMATED COUNT 5.1 10*3/u L 4.7 - 11 09/28 Specimen Type: BLOOD No comment entered. Ordering Provider: MARCELLE BHATT Report Released Date/Time: Sep 29, 2023 01:36 PM Reporting Lab: [place] [address] Performing Lab: [address] [facility] CBC ERYTHROCYTE S [#/VOLUME] IN BLOOD BY AUTOMATED COUNT 4.66 10*6/u L 4.5 - 6 09/28 Specimen Type: BLOOD No comment entered. Ordering Provider: MARCELLE BHATT Report Released Date/Time: Sep 29, 2023 01:36 PM Reporting Lab: [place] [phone] Performing Lab: [address] [address] [place] CBC HEMOGLOBIN [MASS/VOLUM E] IN BLOOD 14.7 g/dL 13.5 - 17.5 09/28 Specimen Type: BLOOD No comment entered. Ordering Provider: MARCELLE BHATT Report Released Date/Time: Sep 29, 2023 01:36 PM Reporting Lab: [address] [address] Performing Lab: [place] [phone] [facility] CBC HEMATOCRIT [VOLUME FRACTION] OF BLOOD BY AUTOMATED COUNT 43.9 42 - 52 09/28 Specimen Type: BLOOD No comment entered. Ordering Provider: MARCELLE BHATT Report Released Date/Time: Sep 29, 2023 01:36 PM Reporting Lab: [address] [address] Performing Lab: [address] [address] [place] CBC MCV [ENTITIC VOLUME] BY AUTOMATED COUNT 94.3 fL 82 - 98 09/28 Specimen Type: BLOOD No comment entered. Ordering Provider: MARCELLE BHATT Report Released Date/Time: Sep 29, 2023 01:36 PM Reporting Lab: [address] [address] Performing Lab: [address] [address] [place] CBC MCH [ENTITIC MASS] BY AUTOMATED COUNT 31.6 pg 27 - 31 09/28 H Specimen Type: BLOOD No comment entered. Ordering Provider: MARCELLE BHATT Report Released Date/Time: Sep 29, 2023 01:36 PM Reporting Lab: [address] [address] Performing Lab: [place] [address] CBC MCHC [MASS/VOLUM E] BY AUTOMATED COUNT 33.5 g/dL 30 - 37 09/28 Specimen Type: BLOOD No comment entered. Ordering Provider: MARCELLE BHATT Report Released Date/Time: Sep 29, 2023 01:36 PM Reporting Lab: [place] [address] Performing Lab: [address] CBC PLATELETS [#/VOLUME] IN BLOOD BY AUTOMATED COUNT 236 10*3/u L 140 - 400 09/28 Specimen Type: BLOOD No comment entered. Ordering Provider: MARCELLE BHATT Report Released Date/Time: Sep 29, 2023 01:36 PM Reporting Lab: [place] [address] Performing Lab: [address] CBC PLATELET MEAN VOLUME [ENTITIC VOLUME] IN BLOOD BY AUTOMATED COUNT 9.6 fL 8 - 13 09/28 Specimen Type: BLOOD No comment entered. Ordering Provider: MARCELLE BHATT Report Released Date/Time: Sep 29, 2023 01:36 PM Reporting Lab: [place] [address] Performing Lab: [address] CBC ERYTHROCYTE DISTRIBUTIO N WIDTH [RATIO] BY AUTOMATED COUNT 13.6 11 - 15 09/28 Specimen Type: BLOOD No comment entered. Ordering Provider: MARCELLE BHATT Report Released Date/Time: Sep 29, 2023 01:36 PM Reporting Lab: [place] [address] Performing Lab: [address] TSH THYROTROPIN [UNITS/VOLU ME] IN SERUM OR PLASMA 2.14 u[IU]/ mL 0.45 - 4.54 09/28 Specimen Type: PLASMA No comment entered. Ordering Provider: MARCELLE BHATT Report Released Date/Time: Sep 29, 2023 01:36 PM Reporting Lab: [address] [address] Performing Lab: [address] [address] [facility] LIPID PANEL CHOLESTEROL [MASS/VOLUM E] IN SERUM OR PLASMA 146 mg/dL 0 - 200 09/28 Specimen Type: PLASMA Comment: Standardize d eGFR Interpretat ion Estimated Glomerular Filtration Rate (eGFR) calculated using the 2020 Chronic Kidney Disease-Epi demiology (CKD-EPI) Collaborati on creatinine equation; units of measure are mL/min/1.73 m2. Results are only valid for adults (>18 years) whose serum creatinine is in a steady state. eGFR calculation s are not valid for patients with acute kidney injury and for patients on dialysis. Creatinine- based estimates of kidney function may also be inaccurate in patients with reduced creatinine generation due to decreased muscle mass (e.g., malnutritio n, severe hypoalbumin emia, sarcopenia, chronic neuromuscul ar disease, amputations , severe heart failure or liver disease) and in patients with increased creatinine generation due to increased muscle mass (e.g., muscle builders, anabolic steroids) or increased dietary intake. As drug clearance is proportiona l to total GFR and not GFR indexed to body surface area (BSA), in individuals with a BSA substantial ly different than 1.73 m2, drug dosing should be based the reported eGFR value de-indexed from BSA by multiplying by the individual' s BSA and dividing by 1.73. CKD is diagnosed based on abnormaliti es of kidney structure or function, present for >3 months, with implication s for health and disease. CKD is classified and staged based on cause, eGFR and albuminuria (quantified as urine albumin to creatinine ratio). An eGFR >60 mL/min/1.73 m2 in the absence of increased urine albumin excretion or structural abnormaliti es does not represent CKD. eGFR CKD stage Interpretat ion (mL/min/1.7 3 m2) >=90 G1 Normal 60-89 G2 Mild decrease 45-59 G3A Mild to moderate decrease 30-44 G3B Moderate to severe decrease 15-29 G4 Severe decrease <15 G5 Kidney failure Ordering Provider: MARCELLE BHATT Report Released Date/Time: Sep 29, 2023 01:36 PM Reporting Lab: [address] [address] Performing Lab: [address] [address] [facility] I LIPID PANEL TRIGLYCERID E [MASS/VOLUM E] IN SERUM OR PLASMA 106 mg/dL 0 - 150 09/28 Specimen Type: PLASMA Comment: Standardize d eGFR Interpretat ion Estimated Glomerular Filtration Rate (eGFR) calculated using the 2020 Chronic Kidney Disease-Epi demiology (CKD-EPI) Collaborati on creatinine equation; units of measure are mL/min/1.73 m2. Results are only valid for adults (>18 years) whose serum creatinine is in a steady state. eGFR calculation s are not valid for patients with acute kidney injury and for patients on dialysis. Creatinine- based estimates of kidney function may also be inaccurate in patients with reduced creatinine generation due to decreased muscle mass (e.g., malnutritio n, severe hypoalbumin emia, sarcopenia, chronic neuromuscul ar disease, amputations , severe heart failure or liver disease) and in patients with increased creatinine generation due to increased muscle mass (e.g., muscle builders, anabolic steroids) or increased dietary intake. As drug clearance is proportiona l to total GFR and not GFR indexed to body surface area (BSA), in individuals with a BSA substantial ly different than 1.73 m2, drug dosing should be based the reported eGFR value de-indexed from BSA by multiplying by the individual' s BSA and dividing by 1.73. CKD is diagnosed based on abnormaliti es of kidney structure or function, present for >3 months, with implication s for health and disease. CKD is classified and staged based on cause, eGFR and albuminuria (quantified as urine albumin to creatinine ratio). An eGFR >60 mL/min/1.73 m2 in the absence of increased urine albumin excretion or structural abnormaliti es does not represent CKD. eGFR CKD stage Interpretat ion (mL/min/1.7 3 m2) >=90 G1 Normal 60-89 G2 Mild decrease 45-59 G3A Mild to moderate decrease 30-44 G3B Moderate to severe decrease 15-29 G4 Severe decrease <15 G5 Kidney failure Ordering Provider: MARCELLE BHATT Report Released Date/Time: Sep 29, 2023 01:36 PM Reporting Lab: [address] [address] Performing Lab: [address] [address] [facility] LIPID PANEL CHOLESTEROL IN HDL [MASS/VOLUM E] IN SERUM OR PLASMA 57 mg/dL 23 - 92 09/28 Specimen Type: PLASMA Comment: Standardize d eGFR Interpretat ion Estimated Glomerular Filtration Rate (eGFR) calculated using the 2020 Chronic Kidney Disease-Epi demiology (CKD-EPI) Collaborati on creatinine equation; units of measure are mL/min/1.73 m2. Results are only valid for adults (>18 years) whose serum creatinine is in a steady state. eGFR calculation s are not valid for patients with acute kidney injury and for patients on dialysis. Creatinine- based estimates of kidney function may also be inaccurate in patients with reduced creatinine generation due to decreased muscle mass (e.g., malnutritio n, severe hypoalbumin emia, sarcopenia, chronic neuromuscul ar disease, amputations , severe heart failure or liver disease) and in patients with increased creatinine generation due to increased muscle mass (e.g., muscle builders, anabolic steroids) or increased dietary intake. As drug clearance is proportiona l to total GFR and not GFR indexed to body surface area (BSA), in individuals with a BSA substantial ly different than 1.73 m2, drug dosing should be based the reported eGFR value de-indexed from BSA by multiplying by the individual' s BSA and dividing by 1.73. CKD is diagnosed based on abnormaliti es of kidney structure or function, present for >3 months, with implication s for health and disease. CKD is classified and staged based on cause, eGFR and albuminuria (quantified as urine albumin to creatinine ratio). An eGFR >60 mL/min/1.73 m2 in the absence of increased urine albumin excretion or structural abnormaliti es does not represent CKD. eGFR CKD stage Interpretat ion (mL/min/1.7 3 m2) >=90 G1 Normal 60-89 G2 Mild decrease 45-59 G3A Mild to moderate decrease 30-44 G3B Moderate to severe decrease 15-29 G4 Severe decrease <15 G5 Kidney failure Ordering Provider: MARCELLE BHATT Report Released Date/Time: Sep 29, 2023 01:36 PM Reporting Lab: [place] [id number] [phone] Performing Lab: [facility] [employer] [facility] [id number] [facility] I LIPID PANEL CHOLESTEROL IN LDL [MASS/VOLUM E] IN SERUM OR PLASMA BY CALCULATION 68 mg/dL 75 - 193 09/28 L Specimen Type: PLASMA Comment: Standardize d eGFR Interpretat ion Estimated Glomerular Filtration Rate (eGFR) calculated using the 2020 Chronic Kidney Disease-Epi demiology (CKD-EPI) Collaborati on creatinine equation; units of measure are mL/min/1.73 m2. Results are only valid for adults (>18 years) whose serum creatinine is in a steady state. eGFR calculation s are not valid for patients with acute kidney injury and for patients on dialysis. Creatinine- based estimates of kidney function may also be inaccurate in patients with reduced creatinine generation due to decreased muscle mass (e.g., malnutritio n, severe hypoalbumin emia, sarcopenia, chronic neuromuscul ar disease, amputations , severe heart failure or liver disease) and in patients with increased creatinine generation due to increased muscle mass (e.g., muscle builders, anabolic steroids) or increased dietary intake. As drug clearance is proportiona l to total GFR and not GFR indexed to body surface area (BSA), in individuals with a BSA substantial ly different than 1.73 m2, drug dosing should be based the reported eGFR value de-indexed from BSA by multiplying by the individual' s BSA and dividing by 1.73. CKD is diagnosed based on abnormaliti es of kidney structure or function, present for >3 months, with implication s for health and disease. CKD is classified and staged based on cause, eGFR and albuminuria (quantified as urine albumin to creatinine ratio). An eGFR >60 mL/min/1.73 m2 in the absence of increased urine albumin excretion or structural abnormaliti es does not represent CKD. eGFR CKD stage Interpretat ion (mL/min/1.7 3 m2) >=90 G1 Normal 60-89 G2 Mild decrease 45-59 G3A Mild to moderate decrease 30-44 G3B Moderate to severe decrease 15-29 G4 Severe decrease <15 G5 Kidney failure Ordering Provider: MARCELLE BHATT Report Released Date/Time: Sep 29, 2023 01:36 PM Reporting Lab: [facility] [employer] [facility] [phone] Performing Lab: [facility] [employer] [facility] [address] [facility] LIPID PANEL CHOLESTEROL IN LDL [MASS/VOLUM E] IN SERUM OR PLASMA [facility] 09/28 Specimen Type: PLASMA Comment: Standardize d eGFR Interpretat ion Estimated Glomerular Filtration Rate (eGFR) calculated using the 2020 Chronic Kidney Disease-Epi demiology (CKD-EPI) Collaborati on creatinine equation; units of measure are mL/min/1.73 m2. Results are only valid for adults (>18 years) whose serum creatinine is in a steady state. eGFR calculation s are not valid for patients with acute kidney injury and for patients on dialysis. Creatinine- based estimates of kidney function may also be inaccurate in patients with reduced creatinine generation due to decreased muscle mass (e.g., malnutritio n, severe hypoalbumin emia, sarcopenia, chronic neuromuscul ar disease, amputations , severe heart failure or liver disease) and in patients with increased creatinine generation due to increased muscle mass (e.g., muscle builders, anabolic steroids) or increased dietary intake. As drug clearance is proportiona l to total GFR and not GFR indexed to body surface area (BSA), in individuals with a BSA substantial ly different than 1.73 m2, drug dosing should be based the reported eGFR value de-indexed from BSA by multiplying by the individual' s BSA and dividing by 1.73. CKD is diagnosed based on abnormaliti es of kidney structure or function, present for >3 months, with implication s for health and disease. CKD is classified and staged based on cause, eGFR and albuminuria (quantified as urine albumin to creatinine ratio). An eGFR >60 mL/min/1.73 m2 in the absence of increased urine albumin excretion or structural abnormaliti es does not represent CKD. eGFR CKD stage Interpretat ion (mL/min/1.7 3 m2) >=90 G1 Normal 60-89 G2 Mild decrease 45-59 G3A Mild to moderate decrease 30-44 G3B Moderate to severe decrease 15-29 G4 Severe decrease <15 G5 Kidney failure Ordering Provider: MARCELLE BHATT Report Released Date/Time: Sep 29, 2023 01:36 PM Reporting Lab: [facility] [address] Performing Lab: [place] [id number] [facility] [address] [place] COMPREHEN SIVE METABOLIC PANEL UREA NITROGEN [MASS/VOLUM E] IN SERUM OR PLASMA 20 mg/dL 7 - 09/28 Specimen Type: PLASMA Comment: Standardize d eGFR Interpretat ion Estimated Glomerular Filtration Rate (eGFR) calculated using the 2020 Chronic Kidney Disease-Epi demiology (CKD-EPI) Collaborati on creatinine equation; units of measure are mL/min/1.73 m2. Results are only valid for adults (>18 years) whose serum creatinine is in a steady state. eGFR calculation s are not valid for patients with acute kidney injury and for patients on dialysis. Creatinine- based estimates of kidney function may also be inaccurate in patients with reduced creatinine generation due to decreased muscle mass (e.g., malnutritio n, severe hypoalbumin emia, sarcopenia, chronic neuromuscul ar disease, amputations , severe heart failure or liver disease) and in patients with increased creatinine generation due to increased muscle mass (e.g., muscle builders, anabolic steroids) or increased dietary intake. As drug clearance is proportiona l to total GFR and not GFR indexed to body surface area (BSA), in individuals with a BSA substantial ly different than 1.73 m2, drug dosing should be based the reported eGFR value de-indexed from BSA by multiplying by the individual' s BSA and dividing by 1.73. CKD is diagnosed based on abnormaliti es of kidney structure or function, present for >3 months, with implication s for health and disease. CKD is classified and staged based on cause, eGFR and albuminuria (quantified as urine albumin to creatinine ratio). An eGFR >60 mL/min/1.73 m2 in the absence of increased urine albumin excretion or structural abnormaliti es does not represent CKD. eGFR CKD stage Interpretat ion (mL/min/1.7 3 m2) >=90 G1 Normal 60-89 G2 Mild decrease 45-59 G3A Mild to moderate decrease 30-44 G3B Moderate to severe decrease 15-29 G4 Severe decrease <15 G5 Kidney failure Ordering Provider: MARCELLE BHATT Report Released Date/Time: Sep 29, 2023 01:36 PM Reporting Lab: [facility] [employer] [facility] [phone] Performing Lab: [facility] [employer] [facility] [address] [facility] COMPREHEN SIVE METABOLIC PANEL GLUCOSE [MASS/VOLUM E] IN SERUM OR PLASMA 93 mg/dL 74 - 109 09/28 Specimen Type: PLASMA Comment: Standardize d eGFR Interpretat ion Estimated Glomerular Filtration Rate (eGFR) calculated using the 2020 Chronic Kidney Disease-Epi demiology (CKD-EPI) Collaborati on creatinine equation; units of measure are mL/min/1.73 m2. Results are only valid for adults (>18 years) whose serum creatinine is in a steady state. eGFR calculation s are not valid for patients with acute kidney injury and for patients on dialysis. Creatinine- based estimates of kidney function may also be inaccurate in patients with reduced creatinine generation due to decreased muscle mass (e.g., malnutritio n, severe hypoalbumin emia, sarcopenia, chronic neuromuscul ar disease, amputations , severe heart failure or liver disease) and in patients with increased creatinine generation due to increased muscle mass (e.g., muscle builders, anabolic steroids) or increased dietary intake. As drug clearance is proportiona l to total GFR and not GFR indexed to body surface area (BSA), in individuals with a BSA substantial ly different than 1.73 m2, drug dosing should be based the reported eGFR value de-indexed from BSA by multiplying by the individual' s BSA and dividing by 1.73. CKD is diagnosed based on abnormaliti es of kidney structure or function, present for >3 months, with implication s for health and disease. CKD is classified and staged based on cause, eGFR and albuminuria (quantified as urine albumin to creatinine ratio). An eGFR >60 mL/min/1.73 m2 in the absence of increased urine albumin excretion or structural abnormaliti es does not represent CKD. eGFR CKD stage Interpretat ion (mL/min/1.7 3 m2) >=90 G1 Normal 60-89 G2 Mild decrease 45-59 G3A Mild to moderate decrease 30-44 G3B Moderate to severe decrease 15-29 G4 Severe decrease <15 G5 Kidney failure Ordering Provider: MARCELLE BHATT Report Released Date/Time: Sep 29, 2023 01:36 PM Reporting Lab: [facility] [employer] [facility] [phone] Performing Lab: [facility] [employer] [facility] [phone] [place] COMPREHEN [place]IVE METABOLIC PANEL SODIUM [MOLES/VOLU ME] IN SERUM OR PLASMA 137 mmol/L 136 - 145 09/28 Specimen Type: PLASMA Comment: Standardize d eGFR Interpretat ion Estimated Glomerular Filtration Rate (eGFR) calculated using the 2020 Chronic Kidney Disease-Epi demiology (CKD-EPI) Collaborati on creatinine equation; units of measure are mL/min/1.73 m2. Results are only valid for adults (>18 years) whose serum creatinine is in a steady state. eGFR calculation s are not valid for patients with acute kidney injury and for patients on dialysis. Creatinine- based estimates of kidney function may also be inaccurate in patients with reduced creatinine generation due to decreased muscle mass (e.g., malnutritio n, severe hypoalbumin emia, sarcopenia, chronic neuromuscul ar disease, amputations , severe heart failure or liver disease) and in patients with increased creatinine generation due to increased muscle mass (e.g., muscle builders, anabolic steroids) or increased dietary intake. As drug clearance is proportiona l to total GFR and not GFR indexed to body surface area (BSA), in individuals with a BSA substantial ly different than 1.73 m2, drug dosing should be based the reported eGFR value de-indexed from BSA by multiplying by the individual' s BSA and dividing by 1.73. CKD is diagnosed based on abnormaliti es of kidney structure or function, present for >3 months, with implication s for health and disease. CKD is classified and staged based on cause, eGFR and albuminuria (quantified as urine albumin to creatinine ratio). An eGFR >60 mL/min/1.73 m2 in the absence of increased urine albumin excretion or structural abnormaliti es does not represent CKD. eGFR CKD stage Interpretat ion (mL/min/1.7 3 m2) >=90 G1 Normal 60-89 G2 Mild decrease 45-59 G3A Mild to moderate decrease 30-44 G3B Moderate to severe decrease 15-29 G4 Severe decrease <15 G5 Kidney failure Ordering Provider: MARCELLE BHATT Report Released Date/Time: Sep 29, 2023 01:36 PM Reporting Lab: [place] [id number] [facility] [address] Performing Lab: [place] [id number] [facility] [address] DEYSI I DENNIS MARTINEZ METABOLIC PANEL POTASSIUM [MOLES/VOLU ME] IN SERUM OR PLASMA 4.9 mmol/L 3.5 - 5.1 09/28 Specimen Type: PLASMA Comment: Standardize d eGFR Interpretat ion Estimated Glomerular Filtration Rate (eGFR) calculated using the 2020 Chronic Kidney Disease-Epi demiology (CKD-EPI) Collaborati on creatinine equation; units of measure are mL/min/1.73 m2. Results are only valid for adults (>18 years) whose serum creatinine is in a steady state. eGFR calculation s are not valid for patients with acute kidney injury and for patients on dialysis. Creatinine- based estimates of kidney function may also be inaccurate in patients with reduced creatinine generation due to decreased muscle mass (e.g., malnutritio n, severe hypoalbumin emia, sarcopenia, chronic neuromuscul ar disease, amputations , severe heart failure or liver disease) and in patients with increased creatinine generation due to increased muscle mass (e.g., muscle builders, anabolic steroids) or increased dietary intake. As drug clearance is proportiona l to total GFR and not GFR indexed to body surface area (BSA), in individuals with a BSA substantial ly different than 1.73 m2, drug dosing should be based the reported eGFR value de-indexed from BSA by multiplying by the individual' s BSA and dividing by 1.73. CKD is diagnosed based on abnormaliti es of kidney structure or function, present for >3 months, with implication s for health and disease. CKD is classified and staged based on cause, eGFR and albuminuria (quantified as urine albumin to creatinine ratio). An eGFR >60 mL/min/1.73 m2 in the absence of increased urine albumin excretion or structural abnormaliti es does not represent CKD. eGFR CKD stage Interpretat ion (mL/min/1.7 3 m2) >=90 G1 Normal 60-89 G2 Mild decrease 45-59 G3A Mild to moderate decrease 30-44 G3B Moderate to severe decrease 15-29 G4 Severe decrease <15 G5 Kidney failure Ordering Provider: MARCELLE BHATT Report Released Date/Time: Sep 29, 2023 01:36 PM Reporting Lab: [facility] [employer] [facility] [phone] Performing Lab: [facility] [employer] [facility] [phone] DEYSI I SOCORROEN JESSICAE METABOLIC PANEL CHLORIDE [MOLES/VOLU ME] IN SERUM OR PLASMA 99 mmol/L 98 - 107 09/28 Specimen Type: PLASMA Comment: Standardize d eGFR Interpretat ion Estimated Glomerular Filtration Rate (eGFR) calculated using the 2020 Chronic Kidney Disease-Epi demiology (CKD-EPI) Collaborati on creatinine equation; units of measure are mL/min/1.73 m2. Results are only valid for adults (>18 years) whose serum creatinine is in a steady state. eGFR calculation s are not valid for patients with acute kidney injury and for patients on dialysis. Creatinine- based estimates of kidney function may also be inaccurate in patients with reduced creatinine generation due to decreased muscle mass (e.g., malnutritio n, severe hypoalbumin emia, sarcopenia, chronic neuromuscul ar disease, amputations , severe heart failure or liver disease) and in patients with increased creatinine generation due to increased muscle mass (e.g., muscle builders, anabolic steroids) or increased dietary intake. As drug clearance is proportiona l to total GFR and not GFR indexed to body surface area (BSA), in individuals with a BSA substantial ly different than 1.73 m2, drug dosing should be based the reported eGFR value de-indexed from BSA by multiplying by the individual' s BSA and dividing by 1.73. CKD is diagnosed based on abnormaliti es of kidney structure or function, present for >3 months, with implication s for health and disease. CKD is classified and staged based on cause, eGFR and albuminuria (quantified as urine albumin to creatinine ratio). An eGFR >60 mL/min/1.73 m2 in the absence of increased urine albumin excretion or structural abnormaliti es does not represent CKD. eGFR CKD stage Interpretat ion (mL/min/1.7 3 m2) >=90 G1 Normal 60-89 G2 Mild decrease 45-59 G3A Mild to moderate decrease 30-44 G3B Moderate to severe decrease 15-29 G4 Severe decrease <15 G5 Kidney failure Ordering Provider: MARCELLE BHATT Report Released Date/Time: Sep 29, 2023 01:36 PM Reporting Lab: [facility] [employer] [facility] [phone] Performing Lab: [facility] [employer] [facility] [address] DEYSI MARTINEZ METABOLIC PANEL BICARBONATE [MOLES/VOLU ME] IN SERUM OR PLASMA 33 mmol/L 21 - 31 09/28 H Specimen Type: PLASMA Comment: Standardize d eGFR Interpretat ion Estimated Glomerular Filtration Rate (eGFR) calculated using the 2020 Chronic Kidney Disease-Epi demiology (CKD-EPI) Collaborati on creatinine equation; units of measure are mL/min/1.73 m2. Results are only valid for adults (>18 years) whose serum creatinine is in a steady state. eGFR calculation s are not valid for patients with acute kidney injury and for patients on dialysis. Creatinine- based estimates of kidney function may also be inaccurate in patients with reduced creatinine generation due to decreased muscle mass (e.g., malnutritio n, severe hypoalbumin emia, sarcopenia, chronic neuromuscul ar disease, amputations , severe heart failure or liver disease) and in patients with increased creatinine generation due to increased muscle mass (e.g., muscle builders, anabolic steroids) or increased dietary intake. As drug clearance is proportiona l to total GFR and not GFR indexed to body surface area (BSA), in individuals with a BSA substantial ly different than 1.73 m2, drug dosing should be based the reported eGFR value de-indexed from BSA by multiplying by the individual' s BSA and dividing by 1.73. CKD is diagnosed based on abnormaliti es of kidney structure or function, present for >3 months, with implication s for health and disease. CKD is classified and staged based on cause, eGFR and albuminuria (quantified as urine albumin to creatinine ratio). An eGFR >60 mL/min/1.73 m2 in the absence of increased urine albumin excretion or structural abnormaliti es does not represent CKD. eGFR CKD stage Interpretat ion (mL/min/1.7 3 m2) >=90 G1 Normal 60-89 G2 Mild decrease 45-59 G3A Mild to moderate decrease 30-44 G3B Moderate to severe decrease 15-29 G4 Severe decrease <15 G5 Kidney failure Ordering Provider: MARCELLE BHATT Report Released Date/Time: Sep 29, 2023 01:36 PM Reporting Lab: [facility] [employer] [facility] [phone] Performing Lab: [facility] [employer] [facility] [address] DEYSI MARTINEZ METABOLIC PANEL CALCIUM [MASS/VOLUM E] IN SERUM OR PLASMA 9.5 mg/dL 8.6 - 10.3 09/28 Specimen Type: PLASMA Comment: Standardize d eGFR Interpretat ion Estimated Glomerular Filtration Rate (eGFR) calculated using the 2020 Chronic Kidney Disease-Epi demiology (CKD-EPI) Collaborati on creatinine equation; units of measure are mL/min/1.73 m2. Results are only valid for adults (>18 years) whose serum creatinine is in a steady state. eGFR calculation s are not valid for patients with acute kidney injury and for patients on dialysis. Creatinine- based estimates of kidney function may also be inaccurate in patients with reduced creatinine generation due to decreased muscle mass (e.g., malnutritio n, severe hypoalbumin emia, sarcopenia, chronic neuromuscul ar disease, amputations , severe heart failure or liver disease) and in patients with increased creatinine generation due to increased muscle mass (e.g., muscle builders, anabolic steroids) or increased dietary intake. As drug clearance is proportiona l to total GFR and not GFR indexed to body surface area (BSA), in individuals with a BSA substantial ly different than 1.73 m2, drug dosing should be based the reported eGFR value de-indexed from BSA by multiplying by the individual' s BSA and dividing by 1.73. CKD is diagnosed based on abnormaliti es of kidney structure or function, present for >3 months, with implication s for health and disease. CKD is classified and staged based on cause, eGFR and albuminuria (quantified as urine albumin to creatinine ratio). An eGFR >60 mL/min/1.73 m2 in the absence of increased urine albumin excretion or structural abnormaliti es does not represent CKD. eGFR CKD stage Interpretat ion (mL/min/1.7 3 m2) >=90 G1 Normal 60-89 G2 Mild decrease 45-59 G3A Mild to moderate decrease 30-44 G3B Moderate to severe decrease 15-29 G4 Severe decrease <15 G5 Kidney failure Ordering Provider: MARCELLE BHATT Report Released Date/Time: Sep 29, 2023 01:36 PM Reporting Lab: [facility] [employer] [facility] [phone] Performing Lab: [place] [id number] [address] [facility] Aileen MARTINEZ METABOLIC PANEL ALBUMIN [MASS/VOLUM E] IN SERUM OR PLASMA BY BROMOCRESOL GREEN (BCG) DYE BINDING METHOD 4.0 g/dL 3.5 - 7.5 09/28 Specimen Type: PLASMA Comment: Standardize d eGFR Interpretat ion Estimated Glomerular Filtration Rate (eGFR) calculated using the 2020 Chronic Kidney Disease-Epi demiology (CKD-EPI) Collaborati on creatinine equation; units of measure are mL/min/1.73 m2. Results are only valid for adults (>18 years) whose serum creatinine is in a steady state. eGFR calculation s are not valid for patients with acute kidney injury and for patients on dialysis. Creatinine- based estimates of kidney function may also be inaccurate in patients with reduced creatinine generation due to decreased muscle mass (e.g., malnutritio n, severe hypoalbumin emia, sarcopenia, chronic neuromuscul ar disease, amputations , severe heart failure or liver disease) and in patients with increased creatinine generation due to increased muscle mass (e.g., muscle builders, anabolic steroids) or increased dietary intake. As drug clearance is proportiona l to total GFR and not GFR indexed to body surface area (BSA), in individuals with a BSA substantial ly different than 1.73 m2, drug dosing should be based the reported eGFR value de-indexed from BSA by multiplying by the individual' s BSA and dividing by 1.73. CKD is diagnosed based on abnormaliti es of kidney structure or function, present for >3 months, with implication s for health and disease. CKD is classified and staged based on cause, eGFR and albuminuria (quantified as urine albumin to creatinine ratio). An eGFR >60 mL/min/1.73 m2 in the absence of increased urine albumin excretion or structural abnormaliti es does not represent CKD. eGFR CKD stage Interpretat ion (mL/min/1.7 3 m2) >=90 G1 Normal 60-89 G2 Mild decrease 45-59 G3A Mild to moderate decrease 30-44 G3B Moderate to severe decrease 15-29 G4 Severe decrease <15 G5 Kidney failure Ordering Provider: MARCELLE BHATT Report Released Date/Time: Sep 29, 2023 01:36 PM Reporting Lab: [facility] [employer] [facility] [phone] Performing Lab: [facility] [address] DEYSI MARTINEZ METABOLIC PANEL THEOPHYLLIN E [MASS/VOLUM E] IN SERUM OR PLASMA 0.5 mg/dL 0.3 - 1.0 09/28 Specimen Type: PLASMA Comment: Standardize d eGFR Interpretat ion Estimated Glomerular Filtration Rate (eGFR) calculated using the 2020 Chronic Kidney Disease-Epi demiology (CKD-EPI) Collaborati on creatinine equation; units of measure are mL/min/1.73 m2. Results are only valid for adults (>18 years) whose serum creatinine is in a steady state. eGFR calculation s are not valid for patients with acute kidney injury and for patients on dialysis. Creatinine- based estimates of kidney function may also be inaccurate in patients with reduced creatinine generation due to decreased muscle mass (e.g., malnutritio n, severe hypoalbumin emia, sarcopenia, chronic neuromuscul ar disease, amputations , severe heart failure or liver disease) and in patients with increased creatinine generation due to increased muscle mass (e.g., muscle builders, anabolic steroids) or increased dietary intake. As drug clearance is proportiona l to total GFR and not GFR indexed to body surface area (BSA), in individuals with a BSA substantial ly different than 1.73 m2, drug dosing should be based the reported eGFR value de-indexed from BSA by multiplying by the individual' s BSA and dividing by 1.73. CKD is diagnosed based on abnormaliti es of kidney structure or function, present for >3 months, with implication s for health and disease. CKD is classified and staged based on cause, eGFR and albuminuria (quantified as urine albumin to creatinine ratio). An eGFR >60 mL/min/1.73 m2 in the absence of increased urine albumin excretion or structural abnormaliti es does not represent CKD. eGFR CKD stage Interpretat ion (mL/min/1.7 3 m2) >=90 G1 Normal 60-89 G2 Mild decrease 45-59 G3A Mild to moderate decrease 30-44 G3B Moderate to severe decrease 15-29 G4 Severe decrease <15 G5 Kidney failure Ordering Provider: MARCELLE BHATT Report Released Date/Time: Sep 29, 2023 01:36 PM Reporting Lab: [facility] [employer] [facility] [phone] Performing Lab: [place] [id number] [id number] [facility] COMPREHEN SIVE METABOLIC PANEL ASPARTATE AMINOTRANSF ERASE [ENZYMATIC ACTIVITY/VO LUME] IN SERUM OR PLASMA 29 U/L 13 - 39 09/28 Specimen Type: PLASMA Comment: Standardize d eGFR Interpretat ion Estimated Glomerular Filtration Rate (eGFR) calculated using the 2020 Chronic Kidney Disease-Epi demiology (CKD-EPI) Collaborati on creatinine equation; units of measure are mL/min/1.73 m2. Results are only valid for adults (>18 years) whose serum creatinine is in a steady state. eGFR calculation s are not valid for patients with acute kidney injury and for patients on dialysis. Creatinine- based estimates of kidney function may also be inaccurate in patients with reduced creatinine generation due to decreased muscle mass (e.g., malnutritio n, severe hypoalbumin emia, sarcopenia, chronic neuromuscul ar disease, amputations , severe heart failure or liver disease) and in patients with increased creatinine generation due to increased muscle mass (e.g., muscle builders, anabolic steroids) or increased dietary intake. As drug clearance is proportiona l to total GFR and not GFR indexed to body surface area (BSA), in individuals with a BSA substantial ly different than 1.73 m2, drug dosing should be based the reported eGFR value de-indexed from BSA by multiplying by the individual' s BSA and dividing by 1.73. CKD is diagnosed based on abnormaliti es of kidney structure or function, present for >3 months, with implication s for health and disease. CKD is classified and staged based on cause, eGFR and albuminuria (quantified as urine albumin to creatinine ratio). An eGFR >60 mL/min/1.73 m2 in the absence of increased urine albumin excretion or structural abnormaliti es does not represent CKD. eGFR CKD stage Interpretat ion (mL/min/1.7 3 m2) >=90 G1 Normal 60-89 G2 Mild decrease 45-59 G3A Mild to moderate decrease 30-44 G3B Moderate to severe decrease 15-29 G4 Severe decrease <15 G5 Kidney failure Ordering Provider: MARCELLE BHATT Report Released Date/Time: Sep 29, 2023 01:36 PM Reporting Lab: [facility] [employer] [facility] [phone] Performing Lab: [facility] [employer] [facility] [phone] DEYSI MARTINEZ METABOLIC PANEL PROTEIN [MASS/VOLUM E] IN SERUM OR PLASMA 6.9 g/dL 6.0 - 8.3 09/28 Specimen Type: PLASMA Comment: Standardize d eGFR Interpretat ion Estimated Glomerular Filtration Rate (eGFR) calculated using the 2020 Chronic Kidney Disease-Epi demiology (CKD-EPI) Collaborati on creatinine equation; units of measure are mL/min/1.73 m2. Results are only valid for adults (>18 years) whose serum creatinine is in a steady state. eGFR calculation s are not valid for patients with acute kidney injury and for patients on dialysis. Creatinine- based estimates of kidney function may also be inaccurate in patients with reduced creatinine generation due to decreased muscle mass (e.g., malnutritio n, severe hypoalbumin emia, sarcopenia, chronic neuromuscul ar disease, amputations , severe heart failure or liver disease) and in patients with increased creatinine generation due to increased muscle mass (e.g., muscle builders, anabolic steroids) or increased dietary intake. As drug clearance is proportiona l to total GFR and not GFR indexed to body surface area (BSA), in individuals with a BSA substantial ly different than 1.73 m2, drug dosing should be based the reported eGFR value de-indexed from BSA by multiplying by the individual' s BSA and dividing by 1.73. CKD is diagnosed based on abnormaliti es of kidney structure or function, present for >3 months, with implication s for health and disease. CKD is classified and staged based on cause, eGFR and albuminuria (quantified as urine albumin to creatinine ratio). An eGFR >60 mL/min/1.73 m2 in the absence of increased urine albumin excretion or structural abnormaliti es does not represent CKD. eGFR CKD stage Interpretat ion (mL/min/1.7 3 m2) >=90 G1 Normal 60-89 G2 Mild decrease 45-59 G3A Mild to moderate decrease 30-44 G3B Moderate to severe decrease 15-29 G4 Severe decrease <15 G5 Kidney failure Ordering Provider: MARCELLE BHATT Report Released Date/Time: Sep 29, 2023 01:36 PM Reporting Lab: [facility] [employer] [facility] [phone] Performing Lab: [facility] [employer] [facility] [address] DEYSI MARTINEZ METABOLIC PANEL ANION GAP IN SERUM OR PLASMA 10 mmol/L 10 - 20 09/28 Specimen Type: PLASMA Comment: Standardize d eGFR Interpretat ion Estimated Glomerular Filtration Rate (eGFR) calculated using the 2020 Chronic Kidney Disease-Epi demiology (CKD-EPI) Collaborati on creatinine equation; units of measure are mL/min/1.73 m2. Results are only valid for adults (>18 years) whose serum creatinine is in a steady state. eGFR calculation s are not valid for patients with acute kidney injury and for patients on dialysis. Creatinine- based estimates of kidney function may also be inaccurate in patients with reduced creatinine generation due to decreased muscle mass (e.g., malnutritio n, severe hypoalbumin emia, sarcopenia, chronic neuromuscul ar disease, amputations , severe heart failure or liver disease) and in patients with increased creatinine generation due to increased muscle mass (e.g., muscle builders, anabolic steroids) or increased dietary intake. As drug clearance is proportiona l to total GFR and not GFR indexed to body surface area (BSA), in individuals with a BSA substantial ly different than 1.73 m2, drug dosing should be based the reported eGFR value de-indexed from BSA by multiplying by the individual' s BSA and dividing by 1.73. CKD is diagnosed based on abnormaliti es of kidney structure or function, present for >3 months, with implication s for health and disease. CKD is classified and staged based on cause, eGFR and albuminuria (quantified as urine albumin to creatinine ratio). An eGFR >60 mL/min/1.73 m2 in the absence of increased urine albumin excretion or structural abnormaliti es does not represent CKD. eGFR CKD stage Interpretat ion (mL/min/1.7 3 m2) >=90 G1 Normal 60-89 G2 Mild decrease 45-59 G3A Mild to moderate decrease 30-44 G3B Moderate to severe decrease 15-29 G4 Severe decrease <15 G5 Kidney failure Ordering Provider: MARCELLE BHATT Report Released Date/Time: Sep 29, 2023 01:36 PM Reporting Lab: [facility] [employer] [facility] [phone] Performing Lab: [facility] [employer] [facility] [phone] DEYSI MARTINEZ METABOLIC PANEL ALKALINE PHOSPHATASE [ENZYMATIC ACTIVITY/VO LUME] IN SERUM OR PLASMA 85 U/L 34 - 104 09/28 Specimen Type: PLASMA Comment: Standardize d eGFR Interpretat ion Estimated Glomerular Filtration Rate (eGFR) calculated using the 2020 Chronic Kidney Disease-Epi demiology (CKD-EPI) Collaborati on creatinine equation; units of measure are mL/min/1.73 m2. Results are only valid for adults (>18 years) whose serum creatinine is in a steady state. eGFR calculation s are not valid for patients with acute kidney injury and for patients on dialysis. Creatinine- based estimates of kidney function may also be inaccurate in patients with reduced creatinine generation due to decreased muscle mass (e.g., malnutritio n, severe hypoalbumin emia, sarcopenia, chronic neuromuscul ar disease, amputations , severe heart failure or liver disease) and in patients with increased creatinine generation due to increased muscle mass (e.g., muscle builders, anabolic steroids) or increased dietary intake. As drug clearance is proportiona l to total GFR and not GFR indexed to body surface area (BSA), in individuals with a BSA substantial ly different than 1.73 m2, drug dosing should be based the reported eGFR value de-indexed from BSA by multiplying by the individual' s BSA and dividing by 1.73. CKD is diagnosed based on abnormaliti es of kidney structure or function, present for >3 months, with implication s for health and disease. CKD is classified and staged based on cause, eGFR and albuminuria (quantified as urine albumin to creatinine ratio). An eGFR >60 mL/min/1.73 m2 in the absence of increased urine albumin excretion or structural abnormaliti es does not represent CKD. eGFR CKD stage Interpretat ion (mL/min/1.7 3 m2) >=90 G1 Normal 60-89 G2 Mild decrease 45-59 G3A Mild to moderate decrease 30-44 G3B Moderate to severe decrease 15-29 G4 Severe decrease <15 G5 Kidney failure Ordering Provider: MARCELLE BHATT Report Released Date/Time: Sep 29, 2023 01:36 PM Reporting Lab: [facility] [employer] [facility] [phone] Performing Lab: [facility] [employer] [facility] [phone] DEYSI I DENNIS MARTINEZ METABOLIC PANEL ALANINE AMINOTRANSF ERASE [ENZYMATIC ACTIVITY/VO LUME] IN SERUM OR PLASMA 22 U/L 7 - 52 09/28 Specimen Type: PLASMA Comment: Standardize d eGFR Interpretat ion Estimated Glomerular Filtration Rate (eGFR) calculated using the 2020 Chronic Kidney Disease-Epi demiology (CKD-EPI) Collaborati on creatinine equation; units of measure are mL/min/1.73 m2. Results are only valid for adults (>18 years) whose serum creatinine is in a steady state. eGFR calculation s are not valid for patients with acute kidney injury and for patients on dialysis. Creatinine- based estimates of kidney function may also be inaccurate in patients with reduced creatinine generation due to decreased muscle mass (e.g., malnutritio n, severe hypoalbumin emia, sarcopenia, chronic neuromuscul ar disease, amputations , severe heart failure or liver disease) and in patients with increased creatinine generation due to increased muscle mass (e.g., muscle builders, anabolic steroids) or increased dietary intake. As drug clearance is proportiona l to total GFR and not GFR indexed to body surface area (BSA), in individuals with a BSA substantial ly different than 1.73 m2, drug dosing should be based the reported eGFR value de-indexed from BSA by multiplying by the individual' s BSA and dividing by 1.73. CKD is diagnosed based on abnormaliti es of kidney structure or function, present for >3 months, with implication s for health and disease. CKD is classified and staged based on cause, eGFR and albuminuria (quantified as urine albumin to creatinine ratio). An eGFR >60 mL/min/1.73 m2 in the absence of increased urine albumin excretion or structural abnormaliti es does not represent CKD. eGFR CKD stage Interpretat ion (mL/min/1.7 3 m2) >=90 G1 Normal 60-89 G2 Mild decrease 45-59 G3A Mild to moderate decrease 30-44 G3B Moderate to severe decrease 15-29 G4 Severe decrease <15 G5 Kidney failure Ordering Provider: MARCELLE BHATT Report Released Date/Time: Sep 29, 2023 01:36 PM Reporting Lab: [facility] [address] Performing Lab: [facility] [employer] [facility] [phone] DEYSI MARTINEZ METABOLIC PANEL CREATININE [MASS/VOLUM E] IN SERUM OR PLASMA 0.8 mg/dL 0.6 - 1.3 09/28 Specimen Type: PLASMA Comment: Standardize d eGFR Interpretat ion Estimated Glomerular Filtration Rate (eGFR) calculated using the 2020 Chronic Kidney Disease-Epi demiology (CKD-EPI) Collaborati on creatinine equation; units of measure are mL/min/1.73 m2. Results are only valid for adults (>18 years) whose serum creatinine is in a steady state. eGFR calculation s are not valid for patients with acute kidney injury and for patients on dialysis. Creatinine- based estimates of kidney function may also be inaccurate in patients with reduced creatinine generation due to decreased muscle mass (e.g., malnutritio n, severe hypoalbumin emia, sarcopenia, chronic neuromuscul ar disease, amputations , severe heart failure or liver disease) and in patients with increased creatinine generation due to increased muscle mass (e.g., muscle builders, anabolic steroids) or increased dietary intake. As drug clearance is proportiona l to total GFR and not GFR indexed to body surface area (BSA), in individuals with a BSA substantial ly different than 1.73 m2, drug dosing should be based the reported eGFR value de-indexed from BSA by multiplying by the individual' s BSA and dividing by 1.73. CKD is diagnosed based on abnormaliti es of kidney structure or function, present for >3 months, with implication s for health and disease. CKD is classified and staged based on cause, eGFR and albuminuria (quantified as urine albumin to creatinine ratio). An eGFR >60 mL/min/1.73 m2 in the absence of increased urine albumin excretion or structural abnormaliti es does not represent CKD. eGFR CKD stage Interpretat ion (mL/min/1.7 3 m2) >=90 G1 Normal 60-89 G2 Mild decrease 45-59 G3A Mild to moderate decrease 30-44 G3B Moderate to severe decrease 15-29 G4 Severe decrease <15 G5 Kidney failure Ordering Provider: MARCELLE BHATT Report Released Date/Time: Sep 29, 2023 01:36 PM Reporting Lab: [facility] [phone] Performing Lab: [facility] [employer] [facility] [phone] [facility] COMPREHEN SIVE METABOLIC PANEL GLOMERULAR FILTRATION RATE/1.73 SQ M.PREDICTED [VOLUME RATE/AREA] IN SERUM, PLASMA OR BLOOD BY CREATININE- BASED FORMULA (CKD-EPI 2020) >90 09/28 Specimen Type: PLASMA Comment: Standardize d eGFR Interpretat ion Estimated Glomerular Filtration Rate (eGFR) calculated using the 2020 Chronic Kidney Disease-Epi demiology (CKD-EPI) Collaborati on creatinine equation; units of measure are mL/min/1.73 m2. Results are only valid for adults (>18 years) whose serum creatinine is in a steady state. eGFR calculation s are not valid for patients with acute kidney injury and for patients on dialysis. Creatinine- based estimates of kidney function may also be inaccurate in patients with reduced creatinine generation due to decreased muscle mass (e.g., malnutritio n, severe hypoalbumin emia, sarcopenia, chronic neuromuscul ar disease, amputations , severe heart failure or liver disease) and in patients with increased creatinine generation due to increased muscle mass (e.g., muscle builders, anabolic steroids) or increased dietary intake. As drug clearance is proportiona l to total GFR and not GFR indexed to body surface area (BSA), in individuals with a BSA substantial ly different than 1.73 m2, drug dosing should be based the reported eGFR value de-indexed from BSA by multiplying by the individual' s BSA and dividing by 1.73. CKD is diagnosed based on abnormaliti es of kidney structure or function, present for >3 months, with implication s for health and disease. CKD is classified and staged based on cause, eGFR and albuminuria (quantified as urine albumin to creatinine ratio). An eGFR >60 mL/min/1.73 m2 in the absence of increased urine albumin excretion or structural abnormaliti es does not represent CKD. eGFR CKD stage Interpretat ion (mL/min/1.7 3 m2) >=90 G1 Normal 60-89 G2 Mild decrease 45-59 G3A Mild to moderate decrease 30-44 G3B Moderate to severe decrease 15-29 G4 Severe decrease <15 G5 Kidney failure Ordering Provider: MARCELLE BHATT Report Released Date/Time: Sep 29, 2023 01:36 PM Reporting Lab: [facility] [employer] [facility] [phone] Performing Lab: [facility] [employer] [facility] [address] [facility] Vital Signs Combined list of inpatient and outpatient Vital Signs from Department of Defense and Veterans Affairs, ranging from 12 months to all on record, depending upon the facility. Vital Sign Value Date Comments Source SYSTOLIC BLOOD PRESSURE 106 07/03/2024 13:04:21 [facility] DIASTOLIC BLOOD PRESSURE 62 07/03/2024 13:04:21 [facility] PULSE OXIMETRY 90 07/03/2024 13:04:21 [place] WEIGHT 132.94 07/03/2024 13:04:21 [facility] BMI 20 kg/m2 07/03/2024 13:04:21 [facility] PULSE 60 07/03/2024 13:04:21 [facility] SYSTOLIC BLOOD PRESSURE 153 05/24/2024 10:15:00 [place] DIASTOLIC BLOOD PRESSURE 76 05/24/2024 10:15:00 [place] PULSE OXIMETRY 94 05/24/2024 10:15:00 [place] PAIN 0 05/24/2024 10:15:00 [facility] TEMPERATURE 96.8 05/24/2024 10:15:00 [place] PULSE 61 05/24/2024 10:15:00 [facility] RESPIRATION 18 05/24/2024 10:15:00 [place] SYSTOLIC BLOOD PRESSURE 124 04/26/2024 14:13:44 [place] DIASTOLIC BLOOD PRESSURE 70 04/26/2024 14:13:44 [place] WEIGHT 136.69 04/26/2024 14:13:44 [facility] BMI 20 kg/m2 04/26/2024 14:13:44 [facility] PULSE 60 04/26/2024 14:13:44 [facility] SYSTOLIC BLOOD PRESSURE 127 01/24/2024 14:50:32 [place] DIASTOLIC BLOOD PRESSURE 65 01/24/2024 14:50:32 [place] WEIGHT 134.92 01/24/2024 14:50:32 [facility] BMI 20 kg/m2 01/24/2024 14:50:32 [facility] PULSE 65 01/24/2024 14:50:32 [facility] SYSTOLIC BLOOD PRESSURE 133 12/28/2023 12:33:33 [place] DIASTOLIC BLOOD PRESSURE 69 12/28/2023 12:33:33 [place] PULSE OXIMETRY 90 12/28/2023 12:33:33 [place] WEIGHT 132.06 12/28/2023 12:33:33 [facility] BMI 20 kg/m2 12/28/2023 12:33:33 [facility] PULSE 70 12/28/2023 12:33:33 [facility] Encounters Combined list of: 1) Encounters from Department of Veterans Affairs facilities going backup to the last 18 months, not all VA inpatient encounters are included; 2) Encounters from the Department of Defense facilities going backup to 280 months. 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, subcu of trunk WENDY GIRON 03/13 [facility] [place] [id number] 04/22 [facility] [place] O/P EST MOD 30 MIN [id number] Diagnos is: ICD-10- CM 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 PAULIE GUILLAUME 06/14 [facility] O/P EST MOD 30 MIN [id number] Diagnos is: ICD-10- CM 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 DIRK HEWITT 09/28 [facility] [id number] 10/01 [facility] [place] [id number] 10/09 [facility] IMG RTA DETCJ/MNTR DS STAFF [id number] Diagnos is: ICD-10- CM Z13.5 Encount er for screeni ng for eye and ear disorde rs PEPPER CHRISTIANSON 10/09 [facility] Outpatient Encounter [id number] Diagnos is: ICD-10- CM Z13.5 Encount er for screeni ng for eye and ear disorde rs CHARLES REED THEW F 10/10 [facility] NUTRITIONA L COUNSELING , DIET [id number] Diagnos is: ICD-10- CM R63.6 Underwe ight KRISTINA,ROZINA INDRA A 11/23 [facility]P EST MOD 30 MIN [id number] Diagnos is: ICD-10- CM 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 PAULIE GUILLAUME 12/27 [facility] Outpatient Encounter [id number] [facility] 20 MIN [id number] Diagnos is: ICD-10- CM R23.8 Other skin changes ARSH BHATT RT A 01/23 [facility] CB UNLISTED SPEC DERM SVC/PX [id number] Diagnos is: ICD-10- CM R23.8 Other skin changes ESTRELLITA HENDERSON 01/24 [facility]/OP CNSLTJ NEW/EST LOW 30 [id number] Diagnos is: ICD-10- CM D48.5 Neoplas m of uncerta in behavio r of skin RA NBA SIEGEL 01/27 [facility] COMPRE OPH EXAM EST PT 1/> [id number] Diagnos is: ICD-10- CM Z96.1 Presenc e of intraoc ular lens Tabitha ADAMS ATTHEW J 01/31 [facility] NUTRITIONA L COUNSELING , DIET [id number] Diagnos is: ICD-10- CM R63.6 Underwe ight ROZINA ACEVEDO A 03/22 [facility] [place] OFF/OP EST MAY X REQ PHY/QHP [id number] Diagnos is: ICD-10- CM D48.5 Neoplas m of uncerta in behavio r of skin SHAUGHNESS Y,ALBER N 04/24 [facility] OFFICE O/P EST MOD 30 MIN [id number] Diagnos is: ICD-10- CM 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 ARSH BHATT RT A 04/26 [facility] En[facility] [id number] JORDON SHEA FTA ASIFA 04/26 [facility] INTMD RPR N-HF/GENIT 2.6-7.5 [id number] Diagnos is: ICD-10- CM 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, inc shoulde GO Morales 05/24 [facility] En[facility] [id number] 05/24 [facility] En[facility] [id number] JOSE DANIEL SALAZAR MMAD 05/28 [facility] En[facility] [id number] 05/28 [facility] Out[facility] Encounter [id number] 06/11 [facility] [place] [id number] Diagnos is: ICD-10- CM R63.6 Underwe ROZINA Bloom 06/28 [facility] OFFICE O/P EST LOW 20 MIN [id number] Diagnos is: ICD-10- CM I25.10 Athscl heart disease of tetlin coronar y artery w/o ang pctPAULIE Anderson 07/03 [facility] Social History Combined list of available smoking, tobacco, and other social history from Department of Defense and Veterans Affairs facilities. Social History Type Response Date Comment Sourc e Tobacco smoking status [facility] VA-TOBACCO USE FORMER CIGARETTES 04/26/2024 [facility] History of tobacco use VA-TOBACCO NEVER USED OTHER TYPE 04/26/2024 [facility] History of tobacco use VA-TOBACCO QUIT 1 5 YRS OR MORE 02/24/2023 [facility] History of tobacco use VA-TOBACCO FORMER USER 12/22/2021 [facility] History of tobacco use VA-TOBACCO QUIT 1 5 YRS OR MORE 05/26/2021 [facility] History of tobacco use VA[facility]ACCO [facility] use VA-TOBACCO FORMER USER 05/20/2020 [facility] History of tobacco use TOBACCO USE D/C NON-USER 04/27/2019 [facility] History of tobacco use TOBACCO USE INPT SCRN LAST 30 DAYS NO 04/26/2019 [facility] History of tobacco use VA-TOBACCO FORMER USER 08/03/2018 [facility] History of tobacco use VA-TOBACCO FORMER USER 01/30/2018 [facility] History of tobacco use EX-TOBACCO USER >15Y 02/03/2015 [facility] History of tobacco use EX-TOBACCO USER > 7Y 09/17/2013 [facility] Plan of Care List of future care activities from [facility] facilities. Additional future care activities may be listed in the Assessment and Plan section. Date/Time Care Activity Care Activity Detail Facili ty 09/20/2024 AMBULATORY - NONE AMBULATORY - NONE [facility] Advance Directives List of completed, amended, or rescinded Advance Directives on record at [facility] facilities. An actual copy of the Directive is not included. Date Advance Directive Provider Source 11/21/2019 ADVANCE DIRECTIVE DISCUSSION HUMAN,AYANNA HUBBARD [facility]
--- OUTSIDE RECORDS SUMMARY | 2024-08-12 13:17 | XMS_ITS | Clinical Summary ---
Author Organization Miguel Claudy [facility] Address [address] [place] [address] Care Team Providers Care Account Manager Education Name Role Phone Flynn Macedo APRN - KATERINE Primary Care Provider Social History Tobacco Use Types Packs/Day Years Used Date Smoking Tobacco: Never Assessed Sex and Gender Information Value Date Recorded Sex Assigned at Not on file Legal Sex Male 3:58 PM EDT Gender Identity Not on file Sexual Orientation Not on file Plan of Treatment [place] [id number] [employer] Member Subscriber Plan / Payer (Ef fective 2020-Present) Name:Tyler Reynolds .1.1 Relation to Subscriber:Self Name:Tyler Reynolds .1.1 Payer ID:Not on file Group ID:Not on file Type:Indemnity Address: [address] [place] [address] Care Teams Account Manager Education Relationship Specialty Start Date End Date Flynn Macedo APRN - NP [address] [place] [address], [facility] [place] [address] PCP - General Certified Nurse Practitioner 08/12/20
== END 2024-08-12 23:59 | disposition home or self-care (01) ==
LOC: RT 13:15
PROVIDERS: Visit Provider Chiropractor
DX: I08.2 Rheumatic disorders of both aortic and tricuspid valves (principal); I11.9 Hypertensive heart disease without heart failure; I25.10 Atherosclerotic heart disease of native coronary artery without angina pectoris; E78.5 Hyperlipidemia, unspecified
CPT/HCPCS: 93306